=== PATIENT | male | born 1945 | race Two or more races ===

== ENCOUNTER 2019-02-04 09:06 | Inpatient (IN) | payer MEDICARE, MEDICAID ==
[~2019-02-04] VITALS: Ht 162.6 cm; Wt 62.9 kg
[2019-02-04] MEDS ORDERED: SODIUM CHLORIDE 0.9% 1,000 ML IV ONE ×2 (09:35→12:20)
[2019-02-04 10:00] LABS: Basophils # (auto) 0.1 uL; Basophils % (auto) 0.6 % (0.0-2.0); Eosinophils # (auto) 0.2 uL; Eosinophils % (auto) 1.8 % (0.0-7.0); Hematocrit 28.2 % (41.0-53.0); Hemoglobin 9.6 g/dL (13.5-17.5); Lymphocytes # (auto) 0.6 uL; Lymphocytes % (auto) 5.6 % (10.0-50.0); Mean Corpuscular Hemoglobin 29.6 pg (28.0-32.0); Mean Corpuscular Hgb Conc. 33.9 g/dL (32.0-36.0); Mean Corpuscular Volume 87.1 fL (80.0-100.0); Monocytes # (auto) 0.7 uL; Monocytes % (auto) 5.9 % (0.0-12.0); Neutrophils # (auto) 9.7 uL; Neutrophils % (auto) 86.1 % (37.0-80.0); Platelet Count (auto) 230 10^3/uL (140-450); Red Blood Cells 3.23 10^6/uL (4.5-5.90); White Blood Cell 11.2 10^3/uL (4.4-10.8)
[2019-02-04 10:23] LABS: Albumin 3.2 g/dL (3.4-5.0); BUN/Creatinine Ratio 15.7; Calcium 7.7 mg/dL (8.5-10.1)
[2019-02-04 10:27] LABS: Bilirubin, Total 0.6 mg/dL (0.2-1.0); Total Protein 6.8 g/dL (6.4-8.2)
[2019-02-04 11:05] LABS: Urine Bacteria NONE SEEN /hpf (None Seen); Urine Blood Negative /uL (Negative); Urine Hyaline Cast FEW /lpf (0 - 2); Urine Mucus FEW (None Seen); Urine Specific Gravity 1.009 (1.001-1.035); Urine WBC 2 /hpf (0 - 3)
[2019-02-04] MEDS ORDERED: FUROSEMIDE 40 MG/4 ML VIAL IV ONE (12:20)
[2019-02-04] MEDS ORDERED: NITROGLYCERIN 0.4 MG SL TAB SL PRN (15:00)
[2019-02-04] MEDS ORDERED: POTASSIUM CHLORIDE 20 MEQ, LIDOCAINE 1% (LOCAL ANESTH.) 2 ML in SODIUM CHL 0.9% 100 ML IV ONE (15:00)
[2019-02-04] MEDS ORDERED: ONDANSETRON HCL 4 MG/2 ML VIAL IV PRN (15:00)
[2019-02-04] MEDS ORDERED: MORPHINE SULF INJ 2 MG/ML SYRINGE 1ML IV PRN (15:00)
[2019-02-04] MEDS ORDERED: NITROGLYCERIN 0.4MG/HR TOPICAL PATCH TD ONE (15:00)
[2019-02-04] MEDS ORDERED: ENOXAPARIN SOD 60 MG/0.6 ML SYRINGE SC ONE (15:45)
[2019-02-04] MEDS ORDERED: ASPirin 81 mg TAB PO ONE (15:45)
[2019-02-04] MEDS: cefTRIAXone 1GM/50ML D5W 50 ML IV SCH (15:49)
[2019-02-04] MEDS: hydrALAZINE HCL 20 MG/ML VL IV PRN (16:13)
--- NOTE | 2019-02-04 16:17 | NUR ---
SWALLOW EVALUATED IN EMERGENCY DEPARTMENT. PATIENT NONVERBAL AND MOANING. PATIENT HAS NO TEETH OR DENTURE. PATIENT ABLE TO TOLERATE PUREE DIET TEXTURE WITH THIN LIQUIDS WITH NO OVERT SIGNS OR SYMPTOMS OF ASPIRATION. NURSING NOTIFIED.
[2019-02-04] MEDS: NITROGLYCERIN 50MG/250ML 250 ML IV SCH (17:18)
[2019-02-04 17:25] LABS: INR 0.94 (0.9-1.15); Partial Thromboplastin Time 28.9 sec (23.64-32.05)
[2019-02-04] MEDS ORDERED: MORPHINE SULF INJ 2 MG/ML SYRINGE 1ML IV ONE (17:45)
[2019-02-04] MEDS: InsuLIN REG 1unit/0.01ml Soln (100units/ml) SC SCH (18:30)
[2019-02-04] MEDS: ACCU-CHEK COMFORT CURVE STRIP VI SCH (18:30)
[2019-02-04] MEDS: AZITHROMYCIN 500MG/ 250ML 250 ML IV SCH (19:49)
[2019-02-04] MEDS: HYDROcodone-ACET 5/325MG TAB PO PRN (20:49)
[2019-02-05] MEDS: ACCU-CHEK COMFORT CURVE STRIP VI SCH ×4 (00:39→18:57)
[2019-02-05] MEDS: InsuLIN REG 1unit/0.01ml Soln (100units/ml) SC SCH ×4 (00:39→18:00)
[2019-02-05] MEDS: MORPHINE SULF INJ 2 MG/ML SYRINGE 1ML IV PRN (00:52)
[2019-02-05] MEDS: ATORVASTATIN 20 MG TAB PO SCH ×2 (00:55→22:26)
[2019-02-05] MEDS: hydrALAZINE HCL 20 MG/ML VL IV PRN (05:01)
[2019-02-05 05:27] LABS: Basophils # (auto) 0.1 uL; Basophils % (auto) 1.4 % (0.0-2.0); Eosinophils # (auto) 0.3 uL; Eosinophils % (auto) 3.7 % (0.0-7.0); Hematocrit 24.4 % (41.0-53.0); Hemoglobin 8.5 g/dL (13.5-17.5); Lymphocytes # (auto) 1.1 uL; Lymphocytes % (auto) 13.8 % (10.0-50.0); Mean Corpuscular Hemoglobin 30.4 pg (28.0-32.0); Mean Corpuscular Hgb Conc. 34.9 g/dL (32.0-36.0); Mean Corpuscular Volume 87.3 fL (80.0-100.0); Monocytes # (auto) 1.3 uL; Monocytes % (auto) 16.4 % (0.0-12.0); Neutrophils # (auto) 5.2 uL; Neutrophils % (auto) 64.7 % (37.0-80.0); Platelet Count (auto) 217 10^3/uL (140-450); White Blood Cell 8.1 10^3/uL (4.4-10.8)
[2019-02-05 05:45] LABS: INR 1.01 (0.9-1.15)
[2019-02-05 05:56] LABS: BUN/Creatinine Ratio 14.8; Calcium 7.7 mg/dL (8.5-10.1); Potassium 3.3 mmol/L (3.5-5.1)
[2019-02-05] MEDS: cefTRIAXone 1GM/50ML D5W 50 ML IV SCH (09:17)
[2019-02-05] MEDS: ASPirin-EC 81 mg tab PO SCH (10:00)
[2019-02-05] MEDS ORDERED: FUROSEMIDE 40 MG/4 ML VIAL IV SCH (10:00)
[2019-02-05] MEDS ORDERED: LISINOPRIL 10 MG TAB PO SCH (10:00)
[2019-02-05] MEDS ORDERED: ENOXAPARIN SOD 60 MG/0.6 ML SYRINGE SC SCH (10:00)
[2019-02-05] MEDS: NITROGLYCERIN 0.4MG/HR TOPICAL PATCH TD SCH (10:45)
[2019-02-05] MEDS: POTASSIUM CHL 20MEQ/100ML 100 ML IV SCH ×2 (11:48→13:50)
[2019-02-05] MEDS: NITROGLYCERIN 50MG/250ML 250 ML IV SCH (13:50)
[2019-02-05] MEDS: HYDROcodone-ACET 5/325MG TAB PO PRN (14:30)
[2019-02-05] MEDS ORDERED: NICARDIPINE 25MG/250ML BAG KIT 250 ML IV ONE (16:13)
[2019-02-05] MEDS: NICARDIPINE 25MG/250ML BAG KIT 250 ML IV SCH ×2 (16:25→21:19)
[2019-02-05] MEDS: AZITHROMYCIN 500MG/ 250ML 250 ML IV SCH (18:57)
[2019-02-05 20:15] LABS: Calcium 7.3 mg/dL (8.5-10.1); Potassium 4.1 mmol/L (3.5-5.1)
[2019-02-05 20:17] LABS: BUN/Creatinine Ratio 13.9
[2019-02-05] MEDS ORDERED: FUROSEMIDE 40 MG/4 ML VIAL IV ONE (21:15)
[2019-02-05] MEDS: ALBUTEROL SULF 2.5 MG/0.5ML(0.5%) NEB SOLN NEB PRN (22:18)
[2019-02-05 23:59] VITALS: BP 151/60
[2019-02-06] VITALS (24 sets, daily range): BP systolic 79–158; BP diastolic 45–61
[2019-02-06] MEDS: InsuLIN REG 1unit/0.01ml Soln (100units/ml) SC SCH ×5 (00:46→23:54)
[2019-02-06] MEDS: ACCU-CHEK COMFORT CURVE STRIP VI SCH ×5 (00:46→23:54)
[2019-02-06] MEDS: NICARDIPINE 25MG/250ML BAG KIT 250 ML IV SCH ×3 (02:20→09:49)
[2019-02-06] MEDS: hydrALAZINE HCL 20 MG/ML VL IV PRN (02:29)
[2019-02-06] MEDS ORDERED: FUROSEMIDE 40 MG/4 ML VIAL IV ONE (03:00)
[2019-02-06] MEDS ORDERED: NICARDIPINE 25MG/250ML BAG KIT 250 ML IV ONE (03:19)
[2019-02-06] MEDS: ALBUTEROL SULF 2.5 MG/0.5ML(0.5%) NEB SOLN NEB PRN ×2 (03:39→06:48)
[2019-02-06] MEDS: MORPHINE SULF INJ 2 MG/ML SYRINGE 1ML IV PRN (04:44)
[2019-02-06 06:13] LABS: Eosinophils # (auto) 0 uL; Lymphocytes # (auto) 0.8 uL; Mean Corpuscular Hgb Conc. 35.1 g/dL (32.0-36.0); Monocytes # (auto) 0.9 uL; Neutrophils # (auto) 8.5 uL; White Blood Cell 10.3 10^3/uL (4.4-10.8)
[2019-02-06 06:16] LABS: Basophils # (auto) 0.1 uL; Basophils % (auto) 0.5 % (0.0-2.0); Hematocrit 22.9 % (41.0-53.0); Lymphocytes % (auto) 7.3 % (10.0-50.0); Mean Corpuscular Hemoglobin 30.5 pg (28.0-32.0); Mean Corpuscular Volume 86.9 fL (80.0-100.0); Monocytes % (auto) 9.2 % (0.0-12.0); Platelet Count (auto) 239 10^3/uL (140-450); Red Blood Cells 2.64 10^6/uL (4.5-5.90); Red Cell Distribution Width 14.8 % (11.8-14.3)
[2019-02-06 06:33] LABS: Albumin 2.9 g/dL (3.4-5.0); Calcium 7.4 mg/dL (8.5-10.1); Magnesium 2.7 mg/dL (1.6-2.6); Potassium 3.8 mmol/L (3.5-5.1)
[2019-02-06 06:37] LABS: BUN/Creatinine Ratio 14.3; Bilirubin, Total 0.4 mg/dL (0.2-1.0); Total Protein 6.7 g/dL (6.4-8.2)
[2019-02-06] MEDS ORDERED: SODIUM CHLORIDE 0.9% 1,000 ML IV SCH (08:45)
[2019-02-06] MEDS: ASPirin-EC 81 mg tab PO SCH (08:49)
[2019-02-06] MEDS: ENOXAPARIN SOD 60 MG/0.6 ML SYRINGE SC SCH (08:49)
[2019-02-06] MEDS: NITROGLYCERIN 0.4MG/HR TOPICAL PATCH TD SCH (08:49)
[2019-02-06] MEDS: cefTRIAXone 1GM/50ML D5W 50 ML IV SCH (08:49)
[2019-02-06] MEDS ORDERED: FUROSEMIDE INJECTION 250 MG in SODIUM CHL 0.9% 225 ML IV SCH (09:45)
[2019-02-06] MEDS ORDERED: PIPERACILLIN-TAZOB 2.25GM 50 ML IV ONE (11:30)
[2019-02-06] MEDS ORDERED: CARVEDILOL 3.125 MG TAB PO ONE (12:45)
[2019-02-06] MEDS ORDERED: LINEZOLID 600MG/300ML 300 ML IV ONE (12:45)
[2019-02-06] MEDS ORDERED: FURO1TAB33 PO (12:49)
[2019-02-06] MEDS ORDERED: DOCU-94 PO (12:51)
[2019-02-06] MEDS ORDERED: HYDR50TA15 PO (12:53)
[2019-02-06] MEDS ORDERED: CLON0.1T PO (12:53)
[2019-02-06] MEDS ORDERED: FERR27TA2 PO (12:53)
[2019-02-06] MEDS ORDERED: AML5T PO (12:53)
[2019-02-06] MEDS ORDERED: CAR3125T PO (12:53)
[2019-02-06] MEDS: HYDROcodone-ACET 5/325MG TAB PO PRN (13:23)
[2019-02-06] MEDS ORDERED: ETOMIDATE (2MG/ML) 20ML VIAL IV ONE ×2 (13:33→13:45)
[2019-02-06] MEDS ORDERED: SUCCINYLCHOLINE CHLORIDE 20 MG/ML 10ML VIAL IV ONE ×2 (13:34→13:45)
[2019-02-06] MEDS ORDERED: MIDAZOLAM DRIP 50 mg/50mL 50 ML IV ONE (13:45)
[2019-02-06] MEDS ORDERED: fentaNYL Drip 2500mCg/250mlNS 250 ML IV ONE (13:56)
[2019-02-06] MEDS: fentaNYL Drip 2500mCg/250mlNS 250 ML IV SCH (14:03)
[2019-02-06] MEDS: MIDAZOLAM DRIP 50 mg/50mL 50 ML IV SCH ×3 (14:03→20:33)
[2019-02-06] MEDS: NOREPINEPHRINE 8 MG/250ML KIT 250 ML IV SCH ×2 (14:42→18:34)
[2019-02-06] MEDS ORDERED: LIDOCAINE 1% (LOCAL ANESTH.) PF 5ml SDV ID ONE (15:15)
[2019-02-06] MEDS: PHENYLEPHRINE INJ 20 MG in SODIUM CHL 0.9% 250 ML IV SCH ×3 (16:31→22:14)
[2019-02-06 17:26] LABS: Protein, Urine 316.3 mg/dL (0.0-11.9)
[2019-02-06] MEDS: PIPERACILLIN-TAZOB 2.25GM 50 ML IV SCH (18:20)
[2019-02-06 19:11] LABS: BUN/Creatinine Ratio 14.6
[2019-02-06 19:13] LABS: Calcium 5.9 mg/dL (8.5-10.1)
--- NOTE | 2019-02-06 19:15 | NUR ---
Admit to ICU from ER on vent EDILSON TRAN admitted to ICU via gurney on radiation monitor, intubated and being bagged by Respiratory Therapist. Patient transferred to bed, connected to mechanical ventilator by therapist, SAMMIE at bedside. Patient connected to ICU monitoring, weighed by bedscale, oriented to Renetta Ro, primary RN, unit, ventilator and sedation. NOTE: Patient has TLC PICC line infusing phenylephrine, levophed, lasix drip and sedation with versed and fentanyl. See spreadsheet for titration, OGT and flores catheter in place. Right upper and lower extremities noted to be contracted. MRSA swab in the nares done and specimen sent to lab.
[2019-02-06 19:16] LABS: Potassium 2.8 mmol/L (3.5-5.1)
--- NOTE | 2019-02-06 19:42 | NUR ---
RECEIVED A CALL FROM DR. SCIHLLING WITH NEW ORDERS TO HOLD LASIX DRIP, GIVE NS 500ML IV BOLUS AND START 3% NS @ 50 ML/HR, WILL CARRY OUT ORDERS AFTER BEING READ BACK AND VERIFIED.
[2019-02-06] MEDS ORDERED: SODIUM CHL 3% 500 ML IV ONE (19:45)
[2019-02-06] MEDS ORDERED: INSULIN LANTUS (GLARGINE) 1 /0.01ml (100units/ml) SC ONE (19:45)
[2019-02-06] MEDS ORDERED: SODIUM CHLORIDE 0.9% 500 ML IV ONE (20:30)
[2019-02-06] MEDS: POTASSIUM CHL 20MEQ/100ML 100 ML IV SCH ×2 (20:49→22:40)
[2019-02-06] MEDS: CARVEDILOL 3.125 MG TAB PO SCH (20:53)
[2019-02-06] MEDS: LINEZOLID 600MG/300ML 300 ML IV SCH (21:22)
[2019-02-06] MEDS: SODIUM CHLOR 0.9% PF (SALINE LOCK) 10ML VIAL/SYR IV SCH (21:23)
[2019-02-06] MEDS: ATORVASTATIN 20 MG TAB PO SCH (21:34)
--- NOTE | 2019-02-06 23:33 | NUR ---
RECEIVED A CALL FROM DR. SCHILLING, UPDATED ON PT'S STATUS, NO NEW ORDERS GIVEN BUT JUST TO FOLLOW UP LABS IN THE MORNING.
[2019-02-06 23:55] LABS: BUN/Creatinine Ratio 14.4; Potassium 3.4 mmol/L (3.5-5.1)
[2019-02-06] MEDS: PHENYLEPHRINE INJ 80 MG in SODIUM CHL 0.9% 250 ML IV SCH (23:58)
[2019-02-07] VITALS (94 sets, daily range): BP systolic 91–119; BP diastolic 54–76
--- NOTE | 2019-02-07 00:24 | NUR ---
MAINTAINED ON SUPINE POSITION DUE TO UNSTABLE VS, MAX OUT ON PRESSORS, LEVOPHED @ 30 MCG/MIN, KIMANI @ 180 MCG/MIN, BP 100/58, HR 76. WILL CONTINUE TO MONITOR.
--- NOTE | 2019-02-07 00:25 | NUR ---
RT AT BEDSIDE, FIO2 TITRATED TO 50%, SAT 96%.
--- NOTE | 2019-02-07 00:45 | NUR ---
URINE SPECIMEN SENT FOR IMMUNOFIXATION
[2019-02-07] MEDS: NOREPINEPHRINE BITARTRATE 32 MG in D5W 5% 218 ML IV SCH ×2 (01:08→19:56)
[2019-02-07] MEDS: PIPERACILLIN-TAZOB 2.25GM 50 ML IV SCH ×3 (01:34→17:57)
--- NOTE | 2019-02-07 02:00 | NUR ---
RT AT BEDSIDE, TITRATED FIO2 40%, SAT 94%
[2019-02-07] MEDS ORDERED: PHENYLEPHRINE IV 250 ML IV ONE (03:13)
[2019-02-07] MEDS ORDERED: PHENYLEPHRINE HCL 10 MG/ML VL ONE (03:13)
[2019-02-07] MEDS: MIDAZOLAM DRIP 50 mg/50mL 50 ML IV SCH (03:55)
[2019-02-07 04:28] LABS: Basophils # (auto) 0.1 uL; Basophils % (auto) 0.8 % (0.0-2.0); Eosinophils # (auto) 0 uL; Eosinophils % (auto) 0.5 % (0.0-7.0); Hematocrit 25.9 % (41.0-53.0); Lymphocytes # (auto) 1.9 uL; Lymphocytes % (auto) 18.1 % (10.0-50.0); Mean Corpuscular Hemoglobin 30.4 pg (28.0-32.0); Mean Corpuscular Hgb Conc. 34.7 g/dL (32.0-36.0); Mean Corpuscular Volume 87.6 fL (80.0-100.0); Monocytes # (auto) 1.8 uL; Monocytes % (auto) 17.8 % (0.0-12.0); Neutrophils # (auto) 6.5 uL; Neutrophils % (auto) 62.8 % (37.0-80.0); Nucleated Red Blood Cells % 0.1 %; Platelet Count (auto) 294 10^3/uL (140-450); Red Blood Cells 2.95 10^6/uL (4.5-5.90); Red Cell Distribution Width 14.7 % (11.8-14.3); White Blood Cell 10.4 10^3/uL (4.4-10.8)
[2019-02-07 04:52] LABS: Albumin 2.9 g/dL (3.4-5.0); Bilirubin, Total 0.3 mg/dL (0.2-1.0); Calcium 7.2 mg/dL (8.5-10.1); Potassium 3.6 mmol/L (3.5-5.1)
[2019-02-07] MEDS: PHENYLEPHRINE INJ 80 MG in SODIUM CHL 0.9% 250 ML IV SCH (05:10)
[2019-02-07] MEDS: ACCU-CHEK COMFORT CURVE STRIP VI SCH ×3 (06:00→17:18)
[2019-02-07] MEDS: InsuLIN REG 1unit/0.01ml Soln (100units/ml) SC SCH ×3 (06:00→17:19)
--- NOTE | 2019-02-07 06:17 | NUR ---
ACCVILMA, 0527 = 40 0528 = 45, D50-50 CC IV BOLUS GIVEN, 0615 = 144
--- NOTE | 2019-02-07 07:22 | NUR ---
CLOSING NOTES LEFT ON BED, STILL ON VENT WITH FIO2 40%, SEDATION WITH VERSED AND FENTANYL, LEVOPHED AND PHENYLEPHRINE DRIPS, SEE SPREADSHEET FOR FLOW RATES. LATEST BP 99/58, HR 82, T 97, SPO2 94%. REPORT GIVEN TO STEVIE LUCIA TO ASSUME CARE
[2019-02-07] MEDS: CARVEDILOL 3.125 MG TAB PO SCH (09:50)
[2019-02-07] MEDS: SODIUM CHLOR 0.9% PF (SALINE LOCK) 10ML VIAL/SYR IV SCH ×2 (09:50→22:16)
[2019-02-07] MEDS: LINEZOLID 600MG/300ML 300 ML IV SCH ×2 (09:50→22:17)
[2019-02-07] MEDS: ASPirin-EC 81 mg tab PO SCH (09:50)
[2019-02-07] MEDS: NITROGLYCERIN 0.4MG/HR TOPICAL PATCH TD SCH (09:51)
[2019-02-07] MEDS: ENOXAPARIN SOD 60 MG/0.6 ML SYRINGE SC SCH (09:51)
[2019-02-07] MEDS: fentaNYL Drip 2500mCg/250mlNS 250 ML IV SCH (12:25)
--- NOTE | 2019-02-07 12:30 | NUR ---
WOUND CARE NOTE: Wound care team placing patient on skin integrity rounding due to intubation and sedation. Patient is a 73 yo male admitted for NSTEMI. 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 Patient is currently intubated and sedated. Patient with no signs or symptoms of pain. Last Domingo score is 10. Patient with no pressure injuries. RECOMMENDATIONS: Dietary Consult; Turn q2hrs; Nursing to cleanse buttocks/brian area with mild soap and water, pat dry, apply ZGUARD BID/PRN soiling, may apply sacral OPTIFOAM GENTLE to prevent friction/shear; wound care team to follow while intubated and Domingo <18.
[2019-02-07] MEDS ORDERED: Nepro With Carb Steady 1 Liter Bottle GT SCH (13:15)
[2019-02-07] MEDS: PANTOPRAZOLE 40 MG/10 ML VIAL INJ IV SCH (13:21)
[2019-02-07] MEDS: DEXTROSE (50%) 50ML SYRG IV PRN (17:08)
[2019-02-07] MEDS: ATORVASTATIN 20 MG TAB PO SCH (22:17)
[2019-02-08] VITALS (105 sets, daily range): BP systolic 105–138; BP diastolic 61–89
--- NOTE | 2019-02-08 01:51 | NUR ---
RT NOTE ABG RAN AT 0112 ON 02/08/[address] VERAS IS AWARE AND ACCEPTED SAMPLE. DR. VERAS WANTED ABG FOR PH AND PCO2 VALUES.
[2019-02-08] MEDS: PIPERACILLIN-TAZOB 2.25GM 50 ML IV SCH ×3 (02:00→18:05)
[2019-02-08 02:53] LABS: Basophils # (auto) 0.1 uL; Basophils % (auto) 1.6 % (0.0-2.0); Eosinophils # (auto) 0.1 uL; Eosinophils % (auto) 0.9 % (0.0-7.0); Hematocrit 25.2 % (41.0-53.0); Hemoglobin 8.8 g/dL (13.5-17.5); Lymphocytes # (auto) 1.2 uL; Lymphocytes % (auto) 15.5 % (10.0-50.0); Mean Corpuscular Hemoglobin 30.2 pg (28.0-32.0); Mean Corpuscular Volume 86.1 fL (80.0-100.0); Monocytes % (auto) 12.9 % (0.0-12.0); Neutrophils # (auto) 5.4 uL; Neutrophils % (auto) 69.1 % (37.0-80.0); Nucleated Red Blood Cells % 0.3 %; Platelet Count (auto) 256 10^3/uL (140-450); Red Blood Cells 2.93 10^6/uL (4.5-5.90); Red Cell Distribution Width 15.1 % (11.8-14.3); White Blood Cell 7.8 10^3/uL (4.4-10.8)
[2019-02-08 03:15] LABS: BUN/Creatinine Ratio 13.6; Calcium 7.6 mg/dL (8.5-10.1)
[2019-02-08 03:21] LABS: Potassium 2.8 mmol/L (3.5-5.1)
[2019-02-08] MEDS: InsuLIN REG 1unit/0.01ml Soln (100units/ml) SC SCH ×5 (06:00→23:23)
[2019-02-08] MEDS: ACCU-CHEK COMFORT CURVE STRIP VI SCH ×5 (06:07→23:21)
[2019-02-08] MEDS ORDERED: POTASSIUM CHL 20MEQ/100ML 100 ML IV ONE ×3 (06:24→18:45)
[2019-02-08] MEDS: POTASSIUM CHL 20MEQ/100ML 100 ML IV SCH ×2 (07:00→08:52)
[2019-02-08 08:07] LABS: Immunoglobulin G, Serum 1165 mg/dL (700-1600)
[2019-02-08] MEDS: ASPirin-EC 81 mg tab PO SCH ×2 (10:00→10:14)
--- NOTE | 2019-02-08 10:05 | NUR ---
ULTRASOUND AT BEDSIDE; US tech at bedside for venous study of left arm.
[2019-02-08] MEDS: SODIUM CHLOR 0.9% PF (SALINE LOCK) 10ML VIAL/SYR IV SCH ×2 (10:14→21:29)
[2019-02-08] MEDS: PANTOPRAZOLE 40 MG/10 ML VIAL INJ IV SCH (10:14)
--- NOTE | 2019-02-08 11:14 | NUR ---
ULTRASOUND RESULTS: US results reported to Dr. Rosado, no further orders at this time due to chronic nature of occlusion.
--- NOTE | 2019-02-08 12:10 | NUR ---
Nutrition Assessment Notes: please see attached link for complete assessment Est. Needs based on BW (56 kg): 8768-5517 kcal (25-30 kcal/kgBW), 56-61 gms pro (1.0-1.1 gms/kgBW). Will continue to monitor pertinent labs and reassess nutrient need prn Addendum: 02/08/19 at [address] Amended: Links added.
[2019-02-08] MEDS: LINEZOLID 600MG/300ML 300 ML IV SCH ×2 (13:32→21:29)
[2019-02-08] MEDS: MIDAZOLAM DRIP 50 mg/50mL 50 ML IV SCH (13:37)
[2019-02-08] MEDS: DEXTROSE (50%) 50ML SYRG IV PRN (13:57)
--- NOTE | 2019-02-08 15:30 | NUR ---
AT BEDSIDE; Dr. Ochoa at bedside. Updated on patient's condition, plan to wean off of sedation and attempt ventilator weaning for tomorrow.
[2019-02-08 18:19] LABS: BUN/Creatinine Ratio 15.3; Calcium 7.3 mg/dL (8.5-10.1); Potassium 3.1 mmol/L (3.5-5.1)
[2019-02-08] MEDS: fentaNYL Drip 2500mCg/250mlNS 250 ML IV SCH (18:50)
--- NOTE | 2019-02-08 19:30 | NUR ---
Initial Assessment Patient received laying on bed on mechanical ventilation and sedated with Fentanyl. HOB elevated greater than 30 degrees. ETT secured with [place], ventilator plugged into red outlet, Ambu bag at bedside, oral care and suction rendered. OGT running Nephro with carb steady tube feeding. RN checked residual and it is over 200ml. Tube feedings placed on hold for aspiration precautions/protocol. RN verified proper placement via auscultation with air bolus. MERRY PICC line intact and patent x3 ports with no s/s of infiltration or phlebitis noted. Abd soft and non-distended. F/C intact and draining yellow urine to gravity. Optifoam gentle adhesive dressing CDI to sacral area. SCD's intact to BLE. Neurovascular status intact with palpable distal pulses x4 extremities, skin warm to touch, and capillary refill brisk. Right arm is contracted in flexion, bilateral lower extremities appear contracted as well flexed at hips and bent at the knees. Pillow placed in between legs to prevent pressure areas from forming. Wash cloth in right hand (clenched fist) to prevent pressure area as well. Bed in lowest position, side rails up, bed brakes set, all alarms audible, in direct view of nurses station. Continue close monitoring.
[2019-02-08] MEDS: NOREPINEPHRINE BITARTRATE 32 MG in D5W 5% 218 ML IV SCH (19:56)
[2019-02-08] MEDS: ATORVASTATIN 20 MG TAB PO SCH (21:29)
[2019-02-08] MEDS: PHENYLEPHRINE INJ 80 MG in SODIUM CHL 0.9% 250 ML IV SCH (22:10)
--- NOTE | 2019-02-08 23:00 | NUR ---
Wound care pressure area to right ischial bony prominence and right lateral ankle covered with Optifoam gentle adhesive dressing. Photos taken for reference and new wound care consult placed per protocol.
[2019-02-09] VITALS (101 sets, daily range): BP systolic 95–145; BP diastolic 67–97
[2019-02-09] MEDS: PIPERACILLIN-TAZOB 2.25GM 50 ML IV SCH ×3 (01:28→17:22)
--- NOTE | 2019-02-09 04:00 | NUR ---
Ongoing Assessment patient was awake but not following commands. Became tachycardic-Fentanyl was titrated up for patient safety/comfort. Tube feeding residuals re-checked at 0000 and it is 150. Tube feedings remain off for pending CPAP trial. HOB elevated, being turned, all bony prominences and heels offloaded with pillows, skin is clean and dry. Skin re-assessed for any changes and none noted. Neurovascular status remains intact with palpable distal pulses, skin warm to touch, and capillary refill brisk. PICC line intact and patent with no s/s of infiltration or phlebitis noted. All fall/safety precautions intact. Continue close monitoring.
[2019-02-09 04:27] LABS: BUN/Creatinine Ratio 15.1; Calcium 7.8 mg/dL (8.5-10.1); Potassium 3.2 mmol/L (3.5-5.1)
--- NOTE | 2019-02-09 04:58 | NUR ---
Hospitalist paged re: labs. Waiting for call back.
--- NOTE | 2019-02-09 05:03 | NUR ---
Hospitalist called back Informed of labs. Order received for Potassium effervescent 25meq GT x1. RN performe TORB and COFFEE MAKER SERVICER verified order to be correct. No additional orders received.
[2019-02-09] MEDS ORDERED: POTASSIUM EFFERVESENT TAB 25 MEQ GT ONE ×2 (05:15→12:15)
[2019-02-09] MEDS: ACCU-CHEK COMFORT CURVE STRIP VI SCH ×4 (05:24→23:06)
[2019-02-09] MEDS: InsuLIN REG 1unit/0.01ml Soln (100units/ml) SC SCH ×4 (05:24→23:16)
--- NOTE | 2019-02-09 07:00 | NUR ---
Report given No changes or incidents to report. No s/s of distress or pain noted, all vitals stable Care endorsed to day shift RN.
[2019-02-09] MEDS: SODIUM CHLOR 0.9% PF (SALINE LOCK) 10ML VIAL/SYR IV SCH ×2 (10:00→21:34)
[2019-02-09] MEDS: PANTOPRAZOLE 40 MG/10 ML VIAL INJ IV SCH (10:38)
[2019-02-09] MEDS: LINEZOLID 600MG/300ML 300 ML IV SCH ×2 (10:39→21:34)
--- NOTE | 2019-02-09 11:41 | NUR ---
DR. VERAS HERE TO SEE PATIENT. SEE MD NOTES AND EMR FOR ANY NEW ORDERS.
--- NOTE | 2019-02-09 12:07 | NUR ---
DR. CHEN HERE TO SEE PATIENT. SEE MD OTES AND EMR FOR ANY NEW ORDERS.
[2019-02-09] MEDS ORDERED: FUROSEMIDE 40 MG/4 ML VIAL IV ONE (12:30)
--- NOTE | 2019-02-09 12:30 | NUR ---
DR. SCHILLING HERE TO SEE PATIENT. SEE MD NOTES AND EMR FOR ANY NEW ORDERS.
--- NOTE | 2019-02-09 12:37 | NUR ---
DR. CHEN HERE TO SEE PATIENT. SEE MD NOTES AND EMR FOR ANY NEW ORDERS.
--- NOTE | 2019-02-09 12:42 | NUR ---
Wound care consult here to see patient. See notes.
--- NOTE | 2019-02-09 12:44 | NUR ---
WOUND CARE NOTE: IN TO SEE PATIENT AT THIS TIME FOR SKIN INTEGRITY. PATIENT HAS CURRENT CLEMENT SCORE OF 10. PATIENT IS INTUBATED, SEDATED. HE CONTINUES TO DISPLAY MULTIPLE PINK COLLAGEN SCARS TO SACRUM, BILATERAL ISHIUM. THERE IS A SLOW TO CHARLEY REDNESS NOTED TO RIGHT HIP/BUTTOCK. SKIN IS DARK RED, PINK, BLANCHES. WOUND PHOTO TAKEN UPON ASSESSMENT BY BEDSIDE NURSE FOR REFERENCE. PATIENT IS NOTED TO HAVE CONTRACTIONS OF THE LIMBS, VERY THIN- WEIGHING ONLY 57 KG. ORDERED SPECIALTY AIR BED AT THIS TIME. PATIENT TO BE PLACED, PENDING DELIVERY BY VETO RAMIREZ. RECOMMEND: ADD: SPECIALTY AIR BED, CONTINUATION WITH ALL OTHER WOUND CARE ORDERS PREVIOUSLY PRESCRIBED BY MD. WOUND CARE TEAM WILL CONTINUE TO MONITOR. Addendum: 02/09/19 at 1609 by Adeline Prince RN Amended: Links added.
--- NOTE | 2019-02-09 13:10 | NUR ---
DR. BIRCH HERE TO SEE PATIENT. SEE MD NOTES AND EMR FOR ANY NEW ORDERS.
[2019-02-09] MEDS: MIDAZOLAM DRIP 50 mg/50mL 50 ML IV SCH (13:13)
[2019-02-09] MEDS: fentaNYL Drip 2500mCg/250mlNS 250 ML IV SCH (13:13)
--- NOTE | 2019-02-09 15:00 | NUR ---
Respiratory note: MEDNEB TX GIVEN WITH EZ-PAP. PT TOLERATED WELL. NO ADVERSE REACTIONS NOTED. EZPAP SET TO 5 WITH FLOW SET TO 8LPM Addendum: 02/09/19 at 1635 by Montana Pineda, RT WRONG PT PLEASE DISREGARD.
--- NOTE | 2019-02-09 19:00 | NUR ---
OPENING NOTES ASSUMED CARE, STILL ON VENT WITH NO SEDATION, OCCASIONALLY OPENING HIS EYES BUT DOES NOT FOLLOW SIMPLE COMMANDS, RIGHT UPPER/LOWER EXTREMITIES ARE CONTRACTED, LEFT ARM PICC LINE PATENT AND INTACT, PIMENTEL CATHETER DRAINING TO A CLEAR, YELLOW URINE. BED IN LOWEST POSITION WITH SIDE RAILS UP, BED ALARM ON. WILL CONTINUE CARE.
--- NOTE | 2019-02-09 20:55 | NUR ---
TRANSFERRED TO SPECIALTY BED, VS STABLE, NO DISTRESS NOTED.
--- NOTE | 2019-02-09 21:00 | NUR ---
SMALL AMOUNT OF SOFT STOOLS NOTED. COMPLETE BED BATH WITH CHG DONE, FULL LINENS AND GOWN CHANGED, REPOSITIONED FOR COMFORT.
[2019-02-09] MEDS: ATORVASTATIN 20 MG TAB PO SCH (21:35)
--- NOTE | 2019-02-09 21:58 | NUR ---
SCD APPLIED TO RIGHT LEG
[2019-02-10] VITALS (103 sets, daily range): BP systolic 95–139; BP diastolic 55–97
[2019-02-10] MEDS: PIPERACILLIN-TAZOB 2.25GM 50 ML IV SCH ×3 (02:04→18:30)
[2019-02-10 04:07] LABS: Basophils # (auto) 0.1 uL; Basophils % (auto) 0.8 % (0.0-2.0); Eosinophils # (auto) 0 uL; Eosinophils % (auto) 0.1 % (0.0-7.0); Hematocrit 25.1 % (41.0-53.0); Hemoglobin 8.7 g/dL (13.5-17.5); Lymphocytes # (auto) 0.9 uL; Lymphocytes % (auto) 12.7 % (10.0-50.0); Mean Corpuscular Hgb Conc. 34.6 g/dL (32.0-36.0); Mean Corpuscular Volume 86.9 fL (80.0-100.0); Monocytes # (auto) 0.9 uL; Monocytes % (auto) 12.9 % (0.0-12.0); Neutrophils # (auto) 5.4 uL; Neutrophils % (auto) 73.5 % (37.0-80.0); Nucleated Red Blood Cells % 0.8 %; Platelet Count (auto) 268 10^3/uL (140-450); Red Blood Cells 2.89 10^6/uL (4.5-5.90); Red Cell Distribution Width 14.8 % (11.8-14.3); White Blood Cell 7.3 10^3/uL (4.4-10.8)
[2019-02-10 04:27] LABS: BUN/Creatinine Ratio 15.9; Potassium 4.2 mmol/L (3.5-5.1)
--- NOTE | 2019-02-10 04:30 | NUR ---
ELIMINATION MODERATE AMOUNT OF SOFT, GREENISH STOOLS NOTED, CLEANSED AND KEPT DRY AND COMFORTABLE, Z-GUARD APPLIED TO SACRUM AND COVERED WITH OPTIFOAM. REPOSITIONED FOR COMFORT.
[2019-02-10] MEDS: InsuLIN REG 1unit/0.01ml Soln (100units/ml) SC SCH ×3 (06:00→18:00)
--- NOTE | 2019-02-10 06:00 | NUR ---
UNABLE TO WEIGH, BEDSCALE IS NOT WORKING
[2019-02-10] MEDS: ACCU-CHEK COMFORT CURVE STRIP VI SCH ×3 (06:07→18:29)
--- NOTE | 2019-02-10 06:50 | NUR ---
PAGED THE HOSPITALIST FOR LOW URINE OUTPUT. AWAITING CALL BACK.
--- NOTE | 2019-02-10 07:09 | NUR ---
Respiratory note: RECEIVED PATIENT ON V14 ESPRIT VENT ORALLY INTUBATED WITH AN 8.0 ETT SECURED VIA JABARI AT THE 22CM MARKING AT THE LIP, AND MECHANICALLY VENTILATED WITH THE CHARTED SETTINGS. SPO2 97%, LUNG SOUNDS CLEAR/DIM T/O, NO SECRETIONS WHEN SUCTIONED. SKIN IS WARM/DRY TO THE TOUCH AND IS INTACT NEAR JABARI SITE. THERE IS AN OGT IN PLACE AND SECURED TO THE ETT, A PICC LINE IS PLACED IN THE LEFT UPPER ARM. EDEMA NOTED IN LEFT HAND. NO EDEMA NOTED IN OTHER EXTREMITIES. NO NEW CXR TO ASSESS. PATIENT UNRESPONSIVE TO VERBAL STIMULI BUT DOES SHOW RESPONSE TO TACTILE STIMULI AND IS OFF ALL SEDATION. PATIENT IS RESTING COMFORTABLY AND TOLERATING VENT WELL, NO CHANGES MADE.
--- NOTE | 2019-02-10 07:13 | NUR ---
BHARTI DODGE CALLED BACK, UPDATED ON PT'S URINE OUTPUT OF 120 ML, HE SAID, HE WILL REVIEW THE LABS FIRST. NO NEW ORDER WAS GIVEN
[2019-02-10] MEDS ORDERED: FUROSEMIDE 20 MG/2 ML VIAL IV ONE (07:15)
--- NOTE | 2019-02-10 07:27 | NUR ---
LASIX 20 MG IV GIVEN ORDERED, BP 115/81
[2019-02-10] MEDS: ASPirin-EC 81 mg tab PO SCH (10:00)
[2019-02-10] MEDS: PANTOPRAZOLE 40 MG/10 ML VIAL INJ IV SCH (10:15)
[2019-02-10] MEDS: SODIUM CHLOR 0.9% PF (SALINE LOCK) 10ML VIAL/SYR IV SCH ×2 (10:15→22:35)
--- NOTE | 2019-02-10 11:00 | NUR ---
AT BEDSIDE: Dr. Nolasco at bedside, updated on decreased urine output during warehouse worker 2nd shift. Orders received.
--- NOTE | 2019-02-10 11:13 | NUR ---
Nutrition Follow-up Notes Wt.: 57.0 kg as of yesterday. Pt's intubated, non-sedated, no immediate family member at bedside during rounds earlier. Pt's currently NPO, EN support temporarily held for possible weaning off from vent, per nursing. Pt's with previous order for Nephro Carb Steady @ 30 ml/hr providing 1296 kcal, 58 gms pro and 523 ml free water. Noted pt's for active Wound and Pulmonary consults. Est. Needs based on BW (56 kg): 1260-1444 kcal (25-30 kcal/kgBW), 56-61 gms pro (1.0-1.1 gms/kgBW). Will continue to monitor pertinent labs and reassess nutrient need prn Labs: Na 133 L, BUN 63 H, Cr 3.96 H, Ca 8.0 L, Alb 2.7 L. Skin: Domingo scale 12, high risk, pt's right hip/buttocks blanchable redness per clinical documentation consultant. Pls refer to latest job coach/job developer's notes for further details re: tx plans. GI: Pt had 1 BM this morning per clinical documentation consultant. PES: Increased nutrient needs r/t current/chronic medical/nutritional status aeb 96% IBW, BMI 21.6 kg/m2, decreased muscle mass, intubated sedated with order of NPO Altered nutrition related lab values r/t current/chronic medical condition aeb elev RFT hypocalcemia Will continue to monitor NPO status, skin status, pertinent labs and weight trend. F/u in 2 to 3 days. Rec.: 1.) If still NPO remains on EN support, with renal labs continue trending up, not on dialysis, consider change EN formula to Glucerna 1.2 Luis Angel @ 50 ml/hr if medically appropriate. 2.) If Albumin continues trending down improved renal labs, consider Prostat 1 pkt BID. 3.) Consider daily MVI with minerals and Asc acid 500 mgs BID. 4.) Advance gradually to oral diet when medically appropriate. 5.) Refer pt to CDE/RD for further nutrition education and weight monitoring upon discharge. 6.) Continue current plan of care.
[2019-02-10] MEDS: fentaNYL Drip 2500mCg/250mlNS 250 ML IV SCH ×2 (12:51→22:38)
[2019-02-10] MEDS: LINEZOLID 600MG/300ML 300 ML IV SCH ×2 (12:51→22:35)
[2019-02-10] MEDS: MIDAZOLAM DRIP 50 mg/50mL 50 ML IV SCH (12:51)
--- NOTE | 2019-02-10 12:55 | NUR ---
AT BEDSIDE: Dr. Ochoa at bedside, orders received for CPAP trial will notify RT.
--- NOTE | 2019-02-10 13:07 | NUR ---
Respiratory note: PATIENT PLACED ON CPAP MODE AT THIS TIME FOR SBT. REA FIGUEROA AWARE OF VENT MODE CHANGE AND PATIENTS CURRENT TOLERANCE. PATIENT TOLERATING TRIAL WELL SO FAR. WILL CONTINUE TO MONITOR PATIENT CLOSELY. VT: 461 RR: 24 VE: 7.3 HR: 112 SPO2: 96% BP: 105/74
--- NOTE | 2019-02-10 13:25 | NUR ---
Respiratory note: SBT FAILED. PATIENT PLACED BACK ON PREVIOUSLY ORDERED AC MODE/SETTINGS. PATIENT BECAME INCREASINGLY TACHYPNEIC WITH RR AT 38 AND WAS UNABLE TO RELAX AND DECREASE RATE. REA DC IS COVERING FOR REA FIGUEROA, AND WAS NOTIFIED OF FAILED SBT AND PLACEMENT BACK ON PREVIOUS SETTINGS. SBT LASTED FOR 20MIN.
[2019-02-10] MEDS ORDERED: SODIUM CHLORIDE 0.9% 250 ML IV ONE (16:00)
[2019-02-10] MEDS ORDERED: SODIUM CHLORIDE 0.9% 1,000 ML IV SCH (16:00)
--- NOTE | 2019-02-10 16:26 | NUR ---
Respiratory note: VENT MODE CHANGED TO SIMV, WITH THE FOLLOWING SETTINGS: SIMV 10, 500, +8, PS 10, 30% PER DR. VERAS'S BEDSIDE ORDER. PATIENT TOLERATING NEW MODE WELL. REA FIGUEROA MADE AWARE OF ALL CHANGES. PATIENT REMAINS OFF SEDATION AND RESPONSIVE TO TACTILE STIMULI AND CONTINUES TO BE UNRESPONSIVE TO VERBAL STIMULI.
--- NOTE | 2019-02-10 21:42 | NUR ---
Respiratory note: CALLED TO BEDSIDE BY RN DUE TO PT DESATURATING TO THE 70'S AND RR IN THE HIGH 30'S. ANG DRAWN, SWITCHED PT BACK TO PREVIOUS SETTINGS ON A/C MODE AND FIO2 INCREASED TO 100%, SATS UP TO 91%. BREATH SOUNDS COURSE, SUCTIONED FOR MOD AMT OF THICK TUCKER SECRETIONS. NO IMPROVEMENT IN SATS/RR. PTS HR IS INCREASED WELL, RESPIRATORY EFFORT APPEARS AGONAL, PT LESS RESPONSIVE. DR. VERAS CALLED WITH ABG RESULTS AND UPDATE ON PT, ORDERS RECEIVED.
[2019-02-10] MEDS: DexMEDEtomidine 400 MCG in D5W 5% 96 ML IV SCH (22:08)
[2019-02-10] MEDS ORDERED: SODIUM BICARBONATE 8.4% INJ 50ML SYRINGE ONE (22:10)
[2019-02-10] MEDS ORDERED: SODIUM BICARBONATE 8.4 % INJ 50ML VIAL IV ONE (22:15)
--- NOTE | 2019-02-10 22:15 | NUR ---
TACHYPNEA/TACHYCARDIA/AGONAL BREATHING PATIENT IS HAVING AGONAL BREATHING, TACHYPNEIC IN HIGH 30'S, TACHYCARDIC IN 120'S TO 130'S AND SATURATION IS IN LOW 80'S. CALLED RT TO BEDSIDE. ABG DONE . PLACED PATIENT ON AC MODE ON VENTILATOR. TALKED TO ON THE PHONE AND ORDERS RECEIVED.
[2019-02-10] MEDS: ATORVASTATIN 20 MG TAB PO SCH (22:34)
--- NOTE | 2019-02-10 22:45 | NUR ---
CONDITION IMPROVED PATIENT IS BREATHING NORMAL, SATURATION IMPROVED. PATIENT IS ON FENTANYL 25MCG/HR.
[2019-02-11] VITALS (97 sets, daily range): BP systolic 95–120; BP diastolic 55–83
[2019-02-11] MEDS: ACCU-CHEK COMFORT CURVE STRIP VI SCH ×4 (00:30→17:41)
[2019-02-11] MEDS: InsuLIN REG 1unit/0.01ml Soln (100units/ml) SC SCH ×4 (00:32→17:41)
[2019-02-11] MEDS: PIPERACILLIN-TAZOB 2.25GM 50 ML IV SCH ×3 (02:58→17:40)
--- NOTE | 2019-02-11 05:30 | NUR ---
Patient bathe/linen change Patient given complete bath. Skin integrity assessed for any changes. Linens changed. Patient repositioned for comfort.
[2019-02-11 05:54] LABS: Basophils # (auto) 0.1 uL; Eosinophils # (auto) 0 uL; Hematocrit 23.6 % (41.0-53.0); Hemoglobin 8.3 g/dL (13.5-17.5); Lymphocytes # (auto) 0.8 uL; Nucleated Red Blood Cells % 0.9 %; Red Blood Cells 2.71 10^6/uL (4.5-5.90)
[2019-02-11 05:55] LABS: Basophils % (auto) 0.7 % (0.0-2.0); Eosinophils % (auto) 0.1 % (0.0-7.0); Mean Corpuscular Hemoglobin 30.6 pg (28.0-32.0); Mean Corpuscular Volume 87.4 fL (80.0-100.0); Monocytes # (auto) 0.7 uL; Monocytes % (auto) 8.8 % (0.0-12.0); Neutrophils # (auto) 6.8 uL; Neutrophils % (auto) 80.4 % (37.0-80.0); Platelet Count (auto) 207 10^3/uL (140-450); Red Cell Distribution Width 15.1 % (11.8-14.3); White Blood Cell 8.4 10^3/uL (4.4-10.8)
[2019-02-11 06:10] LABS: Calcium 7.4 mg/dL (8.5-10.1); Potassium 3.8 mmol/L (3.5-5.1)
[2019-02-11 06:13] LABS: BUN/Creatinine Ratio 15.2
--- NOTE | 2019-02-11 07:15 | NUR ---
Report received from REA Cao.
--- NOTE | 2019-02-11 08:50 | NUR ---
Irrigated flores and bladder scanner done to check for urine retention: no urine retention, max urine in bladder 58ml.
--- NOTE | 2019-02-11 09:00 | NUR ---
Patient had large loose, brown bowel movement. Alize-care given and chucks changed.
--- NOTE | 2019-02-11 09:10 | NUR ---
Dr. Martinez at bedside: Zachery patel started. Consult with family regarding code status or plans. Will schedule conference with Dr. Curiel and family.
[2019-02-11] MEDS ORDERED: FUROSEMIDE INJECTION 250 MG in SODIUM CHL 0.9% 225 ML IV SCH (09:15)
[2019-02-11] MEDS: PANTOPRAZOLE 40 MG/10 ML VIAL INJ IV SCH (10:33)
[2019-02-11] MEDS: FUROSEMIDE INJECTION 250 MG in SODIUM CHL 0.9% 225 ML IV SCH (10:33)
[2019-02-11] MEDS: SODIUM CHLOR 0.9% PF (SALINE LOCK) 10ML VIAL/SYR IV SCH ×2 (10:34→22:01)
[2019-02-11] MEDS: LINEZOLID 600MG/300ML 300 ML IV SCH (10:34)
[2019-02-11] MEDS: ASPirin-EC 81 mg tab PO SCH (10:34)
--- NOTE | 2019-02-11 10:42 | NUR ---
Respiratory note: CPAP ORDERED. PT TAKEN OFF OF SEDATION AT 1035. WILL DO CPAP ONCE PT WAKES UP.
--- NOTE | 2019-02-11 12:00 | NUR ---
Patient back on AC mode- went apneic per RT.
--- NOTE | 2019-02-11 12:16 | NUR ---
Respiratory note: PUT PT ON CPAP AT 1145. PT KEPT GOING APNIC, INCREASED WORK OF BREATHING AND TACHYPNIC.
--- NOTE | 2019-02-11 12:51 | NUR ---
Meeting scheduled at 1000am with family: Spoke with Gunner, patients son to schedule meeting for 1000am tomorrow.
--- NOTE | 2019-02-11 12:57 | NUR ---
Dr. Curiel at bedside: Zyvox discontinued -okay to schedule meeting with son at 1000 am tomorrow, page Dr. Curiel when family arrives.
[2019-02-11] MEDS: MIDAZOLAM DRIP 50 mg/50mL 50 ML IV SCH (13:19)
--- NOTE | 2019-02-11 15:35 | NUR ---
Dr. Ochoa at bedside: Aware of failed CPAP due to apnea.
--- NOTE | 2019-02-11 16:47 | NUR ---
Patient had 3bowel movements today: Patient on antibiotics. Bowels have no odor, inserted rectal tube for skin integrity protection.
--- NOTE | 2019-02-11 19:08 | NUR ---
ENDORSED CARE TO JOPHY.
[2019-02-11] MEDS: ATORVASTATIN 20 MG TAB PO SCH (22:01)
[2019-02-11] MEDS: DexMEDEtomidine 400 MCG in D5W 5% 96 ML IV SCH (22:08)
[2019-02-12] VITALS (86 sets, daily range): BP systolic 96–126; BP diastolic 14–90
[2019-02-12] MEDS: PIPERACILLIN-TAZOB 2.25GM 50 ML IV SCH ×4 (00:12→17:31)
[2019-02-12] MEDS: ACCU-CHEK COMFORT CURVE STRIP VI SCH ×5 (00:18→23:36)
--- NOTE | 2019-02-12 05:35 | NUR ---
Patient bathe/linen change Patient given complete bath. Skin integrity assessed for any changes. Linens changed. Patient repositioned for comfort.
[2019-02-12] MEDS: InsuLIN REG 1unit/0.01ml Soln (100units/ml) SC SCH ×5 (06:00→23:36)
[2019-02-12 06:15] LABS: Basophils # (auto) 0.1 uL; Eosinophils # (auto) 0.2 uL; Eosinophils % (auto) 2.7 % (0.0-7.0); Hematocrit 22.1 % (41.0-53.0); Hemoglobin 7.6 g/dL (13.5-17.5); Mean Corpuscular Hgb Conc. 34.2 g/dL (32.0-36.0); Mean Corpuscular Volume 87.9 fL (80.0-100.0); Monocytes # (auto) 0.7 uL; Monocytes % (auto) 8.4 % (0.0-12.0); Neutrophils # (auto) 6.7 uL; Neutrophils % (auto) 76.9 % (37.0-80.0); Nucleated Red Blood Cells % 0.4 %; Platelet Count (auto) 164 10^3/uL (140-450); Red Blood Cells 2.52 10^6/uL (4.5-5.90); Red Cell Distribution Width 15.1 % (11.8-14.3); White Blood Cell 8.7 10^3/uL (4.4-10.8)
[2019-02-12 06:34] LABS: Calcium 7.5 mg/dL (8.5-10.1); Potassium 3.1 mmol/L (3.5-5.1)
[2019-02-12 06:36] LABS: BUN/Creatinine Ratio 17.3
--- NOTE | 2019-02-12 07:35 | NUR ---
Report received from REA Cao.
[2019-02-12] MEDS: PANTOPRAZOLE 40 MG/10 ML VIAL INJ IV SCH (10:22)
[2019-02-12] MEDS: ASPirin-EC 81 mg tab PO SCH (10:23)
[2019-02-12] MEDS: SODIUM CHLOR 0.9% PF (SALINE LOCK) 10ML VIAL/SYR IV SCH ×2 (10:23→21:51)
--- NOTE | 2019-02-12 10:30 | NUR ---
Meeting with family today: Both Physicians with family (Dr. Curiel and Dr. Martinez) Discussed goals for the patient- The family decided to make patient a DNR, comfort care-terminal wean after gathering all family members. Brother is coming from [place] and family will decide on Saturday.
[2019-02-12 11:47] LABS: Hepatitis B Core IgM Negative; Hepatitis B Surface Antigen Negative (Negative)
--- NOTE | 2019-02-12 12:17 | NUR ---
Family wants private time with patient. Private time allowed and curtain closed for prayers.
[2019-02-12] MEDS: fentaNYL Drip 2500mCg/250mlNS 250 ML IV SCH (13:37)
[2019-02-12] MEDS: MIDAZOLAM DRIP 50 mg/50mL 50 ML IV SCH (13:37)
--- NOTE | 2019-02-12 14:56 | NUR ---
Residuals checked- 120ml aspirated. Turned off tube feeding. Will recheck in an hour.
--- NOTE | 2019-02-12 15:10 | NUR ---
Nutrition Follow-up Notes Wt.: 57.8 kg Pt's intubated, non-sedated, no immediate family member at bedside during rounds earlier. Pt's currently NPO, EN support temporarily held due to residuals, per nursing. Pt's with previous order for Nephro Carb Steady @ 30 ml/hr providing 1296 kcal, 58 gms pro and 523 ml free water. Est. Needs based on BW (56 kg): 6073-8957 kcal (25-30 kcal/kgBW), 56-61 gms pro (1.0-1.1 gms/kgBW). Will continue to monitor pertinent labs and reassess nutrient need prn Labs: BUN 100 H, CREAT 5.79 H, CA 7.5 L Skin: Domingo scale 9, high risk, pt's right hip/buttocks blanchable redness per senior marketing engineer. Pls refer to latest post splitter's notes for further details re: tx plans. GI: Pt had 100 ml BM this morning per senior marketing engineer. PES: Increased nutrient needs r/t current/chronic medical/nutritional status aeb 96% IBW, BMI 21.6 kg/m2, decreased muscle mass, intubated sedated with order of NPO Altered nutrition related lab values r/t current/chronic medical condition aeb elev RFT hypocalcemia Will continue to monitor NPO status, skin status, pertinent labs and weight trend. F/u in 2 to 3 days. Rec.: 1.) If still NPO remains on EN support, with renal labs continue trending up, not on dialysis, consider change EN formula to Glucerna 1.2 Luis Angel @ 50 ml/hr if medically appropriate. 2.) If Albumin continues trending down improved renal labs, consider Prostat 1 pkt BID. 3.) Consider daily MVI with minerals and Asc acid 500 mgs BID. 4.) Advance gradually to oral diet when medically appropriate. 5.) Refer pt to CDE/RD for further nutrition education and weight monitoring upon discharge. 6.) Continue current plan of care.
[2019-02-12] MEDS: FUROSEMIDE INJECTION 250 MG in SODIUM CHL 0.9% 225 ML IV SCH (16:18)
--- NOTE | 2019-02-12 18:56 | NUR ---
REPORT GIVEN AND ENDORSED CARE TO MICHAEL.
--- NOTE | 2019-02-12 18:57 | NUR ---
RT NOTE RECEIVED PT INTUBATED AND ON VENT V14 ON STATED SETTINGS. VENT IS PLUGGED TO RED OUTLET. ALARMS ARE ON AND AUDIBLE TO NURSING. AMBU BAG AT BEDSIDE AND CONNECTED TO O2 SOURCE. 8.0 ETT IS SECURED WITH ANCHORFAST AT 22 CM TO THE ORAL CENTER. BS ARE CLEAR. PT WAS SUCTIONED FOR SMALL RETURN FROM ETT AND MODERATE RETURN ORALLY. CO2 MONITOR IN PLACE. etCO2 24, POX 100% Addendum: 02/12/19 at 1930 by Lesvia Burgos RT Amended: Links added.
--- NOTE | 2019-02-12 19:45 | NUR ---
OPENING NOTE: INTUBATED AND SEDATED. OPENS EYES AND TRACKS. APPEARS UNCOMFORTABLE, NOTED WITH FACIAL GRIMACING WITH STIMULATION. NSR-SINUS TACH, HR 90-100s. SBP 90-110s. 8.0 ETT, 22 AT LIP. LS CTA, DIMINISHED TO BASES. EVEN AND UNLABORED BREATHING. MINIMAL ORAL SECRETIONS. SpO2>95% ON CURRENT VENT SETTINGS. ABD FLAT AND SOFT. HYPOACTIVE BS. +LIQUID STOOL VIA FLEXI-SEAL. OGT + AIR BOLUS, ~ 50 ML GASTRIC RESIDUALS. TF HELD, BUT WILL CONSIDER RESTARTING IN NEXT COUPLE OF HOURS, IF RESIDUALS REMAIN LOW. PIMENTEL PATENT AND INTACT, DRAINING PALE YELLOW URINE. SEE SKIN AND WOUND FLOWSHEET FOR ASSESSMENT. LEFT UPPER ARM PICC, CDI, PATENT WITH BLOOD RETURN BUT SLUGGISH. REINFORCED POC. MAINTAINED PATIENT SAFETY: BED LOCKED AND IN THE LOWEST POSITION, BED ALARM ON. FREQUENT VISUAL CHECKS. NO FAMILY PRESENT AT THIS TIME. WILL CONT CARE.
--- NOTE | 2019-02-12 19:59 | NUR ---
RT NOTE ROUTINE VENT CHECK DONE. PT INTUBATED AND ON VENT V14 ON STATED SETTINGS. VENT IS PLUGGED TO RED OUTLET. ALARMS ARE ON AND AUDIBLE TO NURSING. AMBU BAG AT BEDSIDE AND CONNECTED TO O2 SOURCE. 8.0 ETT IS SECURED WITH ANCHORFAST AT 22 CM TO THE ORAL CENTER. CO2 MONITOR IN PLACE. etCO2 33, POX 99% Addendum: 02/12/19 at 2040 by Lesvia Burgos RT Amended: Links added.
--- NOTE | 2019-02-12 20:49 | NUR ---
GASTRIC RESIDUALS < 30 ML - RESTARTED NEPRO TF AT 30 ML/HR
--- NOTE | 2019-02-12 20:54 | NUR ---
TYLENOL PRN GIVEN - APPEARS UNCOMFORTABLE
[2019-02-12] MEDS: ACETAMINOPHEN 500 MG TAB PO PRN (20:55)
--- NOTE | 2019-02-12 21:00 | NUR ---
SEDATION VACATION: BLOOD BANK ASSISTANT INCREASED SEDATION DUE TO PATIENT APPEARING UNCOMFORTABLE WITH GRIMACING NOTED. PATIENT OPENS EYES SPONTANEOUSLY AND TRACKS. WILL CONTINUE TO ASSESS SEDATION Addendum: 02/12/19 at 2211 by Quiana Scott RN RN Amended: Links added.
[2019-02-12] MEDS: ATORVASTATIN 20 MG TAB PO SCH (21:34)
--- NOTE | 2019-02-12 21:50 | NUR ---
APPEARS MORE COMFORTABLY THAN PREVIOUSLY, ABLE TO CLOSE HIS EYES, HR FROM 100s TO 90s - WILL CONT CARE
[2019-02-12] MEDS: POTASSIUM CHL 20MEQ/100ML 100 ML IV SCH ×2 (22:07→23:10)
[2019-02-12] MEDS: DexMEDEtomidine 400 MCG in D5W 5% 96 ML IV SCH (22:08)
--- NOTE | 2019-02-12 22:30 | NUR ---
RT NOTE ROUTINE VENT CHECK DONE. PT INTUBATED AND ON VENT V14 ON STATED SETTINGS. VENT IS PLUGGED TO RED OUTLET. ALARMS ARE ON AND AUDIBLE TO NURSING. AMBU BAG AT BEDSIDE AND CONNECTED TO O2 SOURCE. 8.0 ETT IS SECURED WITH ANCHORFAST AT 22 CM TO THE ORAL CENTER.PT SUCTIONED FOR SMALL RETURN. CO2 MONITOR IN PLACE. etCO2 35,POX 98% Addendum: 02/12/19 at 2334 by Lesvia Burgos RT Amended: Links added.
--- NOTE | 2019-02-12 23:38 | NUR ---
GASTRIC RESIDUAL > 60 ML - DECREASED TF TO 15 ML/HR AND HOB > 30 DEGREES
[2019-02-13] VITALS (96 sets, daily range): BP systolic 83–125; BP diastolic 50–77
[2019-02-13] MEDS: PIPERACILLIN-TAZOB 2.25GM 50 ML IV SCH ×5 (00:15→18:02)
--- NOTE | 2019-02-13 00:30 | NUR ---
RT NOTE ROUTINE VENT CHECK DONE. PT INTUBATED AND ON VENT V14 ON STATED SETTINGS. VENT IS PLUGGED TO RED OUTLET. ALARMS ARE ON AND AUDIBLE TO NURSING. AMBU BAG AT BEDSIDE AND CONNECTED TO O2 SOURCE. 8.0 ETT IS SECURED WITH ANCHORFAST AT 22 CM TO THE ORAL CENTER. CO2 MONITOR IN PLACE. etCO2 33,POX 99% Addendum: 02/13/19 at 0041 by Lesvia Burgos RT Amended: Links added.
--- NOTE | 2019-02-13 02:30 | NUR ---
GASTRIC RESIDUAL < 30 ML - WILL CONTINUE RATE AT 15 ML/HR DUE TO HIGH RISK FOR ASPIRATION
--- NOTE | 2019-02-13 02:31 | NUR ---
RT NOTE ROUTINE VENT CHECK DONE. PT INTUBATED AND ON VENT V14 ON STATED SETTINGS. VENT IS PLUGGED TO RED OUTLET. ALARMS ARE ON AND AUDIBLE TO NURSING. AMBU BAG AT BEDSIDE AND CONNECTED TO O2 SOURCE. 8.0 ETT IS SECURED WITH ANCHORFAST AT 22 CM TO THE ORAL CENTER. REA RODRIGUEZ AT BEDSIDE. CO2 MONITOR IN PLACE. etCO2 34,POX 99% Addendum: 02/13/19 at 0248 by Lesvia Burgos RT Amended: Links added.
--- NOTE | 2019-02-13 02:51 | NUR ---
BED BATH WITH CHG WIPES, ARTIE CARE, PIMENTEL CARE, ORAL CARE, AND FULL LINEN CHANGE COMPLETED
--- NOTE | 2019-02-13 03:13 | NUR ---
LEFT UPPER ARM PICC DRESSING AND INJECTION CAPS CHANGED VIA STERILE TECHNIQUE
[2019-02-13 03:46] LABS: Basophils # (auto) 0.1 uL; Basophils % (auto) 1.3 % (0.0-2.0); Eosinophils # (auto) 0.2 uL; Hemoglobin 7.2 g/dL (13.5-17.5); Lymphocytes # (auto) 0.9 uL; Monocytes # (auto) 0.6 uL; White Blood Cell 7.1 10^3/uL (4.4-10.8)
[2019-02-13 03:48] LABS: Lymphocytes % (auto) 12.2 % (10.0-50.0); Mean Corpuscular Hemoglobin 30.3 pg (28.0-32.0); Mean Corpuscular Hgb Conc. 34.2 g/dL (32.0-36.0); Mean Corpuscular Volume 88.7 fL (80.0-100.0); Monocytes % (auto) 7.8 % (0.0-12.0); Neutrophils # (auto) 5.4 uL; Neutrophils % (auto) 75.7 % (37.0-80.0); Nucleated Red Blood Cells % 0.8 %; Platelet Count (auto) 132 10^3/uL (140-450); Red Blood Cells 2.37 10^6/uL (4.5-5.90); Red Cell Distribution Width 14.8 % (11.8-14.3)
[2019-02-13 03:59] LABS: Calcium 7.5 mg/dL (8.5-10.1); Potassium 3.9 mmol/L (3.5-5.1)
[2019-02-13 04:04] LABS: Albumin 1.9 g/dL (3.4-5.0); BUN/Creatinine Ratio 17.8; Bilirubin, Total 0.5 mg/dL (0.2-1.0); Total Protein 5.4 g/dL (6.4-8.2)
--- NOTE | 2019-02-13 04:10 | NUR ---
RT NOTE ROUTINE VENT CHECK DONE. PT INTUBATED AND ON VENT V14 ON STATED SETTINGS. VENT IS PLUGGED TO RED OUTLET. ALARMS ARE ON AND AUDIBLE TO NURSING. AMBU BAG AT BEDSIDE AND CONNECTED TO O2 SOURCE. 8.0 ETT IS SECURED WITH ANCHORFAST AT 22 CM TO THE ORAL CENTER. HME AND INLINE SUCTION CHANGED WITHOUT INCIDENT. CO2 MONITOR IN PLACE. etCO2 32,POX 100% Addendum: 02/13/19 at 0442 by Lesvia Burgos RT Amended: Links added.
[2019-02-13] MEDS: fentaNYL Drip 2500mCg/250mlNS 250 ML IV SCH (05:32)
--- NOTE | 2019-02-13 05:50 | NUR ---
GASTRIC RESIDUALS < 50 ML - WILL KEEP TF AT CURRENT RATE
[2019-02-13] MEDS: InsuLIN REG 1unit/0.01ml Soln (100units/ml) SC SCH ×3 (06:00→18:00)
[2019-02-13] MEDS: ACCU-CHEK COMFORT CURVE STRIP VI SCH ×3 (06:01→18:02)
--- NOTE | 2019-02-13 06:01 | NUR ---
BG 71 - 120 ML ORANGE JUICE GIVEN
--- NOTE | 2019-02-13 06:49 | NUR ---
BG RECHECK 91
--- NOTE | 2019-02-13 06:49 | NUR ---
CLOSING NOTE: REMAINS INTUBATED AND SEDATED. LOW BP, WILL REDUCE SEDATION. VS OTHERWISE STABLE. WILL CONT CARE
--- NOTE | 2019-02-13 07:14 | NUR ---
ENDORSED CARE TO REA ADAM
--- NOTE | 2019-02-13 07:45 | NUR ---
HIGH RESIDUALS RESIDUALS GREATER THAN 100CC. TUBE FEEDINGS STOPPED AT THIS TIME
--- NOTE | 2019-02-13 08:15 | NUR ---
PATIENTS SON SIAT AT BEDSIDE ASKING IF HE CAN SPEAK DIRECTLY WITH PRIMARY MD. PAGED HOSPITALIST. DR QUIROZ WILL COME SPEAK WITH FAMILY AT 10 AM. PATIENTS SON AWARE
--- NOTE | 2019-02-13 08:57 | NUR ---
DR SCHILLING AT BEDSIDE DISCUSSED PATIENTS STATUS AND PLAN OF CARE WITH PATIENTS VIOLET BUCKNER AT BEDSIDE.
[2019-02-13] MEDS: FUROSEMIDE INJECTION 250 MG in SODIUM CHL 0.9% 225 ML IV SCH ×2 (10:00→20:30)
[2019-02-13] MEDS: SODIUM CHLOR 0.9% PF (SALINE LOCK) 10ML VIAL/SYR IV SCH ×2 (10:28→21:26)
[2019-02-13] MEDS: PANTOPRAZOLE 40 MG/10 ML VIAL INJ IV SCH (10:28)
[2019-02-13] MEDS: ASPirin-EC 81 mg tab PO SCH (10:28)
[2019-02-13] MEDS: MIDAZOLAM DRIP 50 mg/50mL 50 ML IV SCH (13:37)
--- NOTE | 2019-02-13 14:13 | NUR ---
DR QUIROZ AT BEDSIDE. NEW ORDERS PLACED
--- NOTE | 2019-02-13 15:15 | NUR ---
PATIENT TRANSPORTED TO RADIOLOGY DEPARTMENT FOR HEAD CT. CONNECTED TO PORTABLE LINE CLEANER AND PORTABLE VENTILATOR. PATIENTS VITALS STABLE DURING TRANSPORT.
--- NOTE | 2019-02-13 16:36 | NUR ---
ASSUMED CARE OF PATIENT. PATIENT IS INTUBATED AND LIGHTLY SEDATED. RESPIRATIONS EVEN AND UNLABORED. NO SIGNS OF ACUTE DISTRESS NOTED.
--- NOTE | 2019-02-13 17:48 | NUR ---
UMM SCHILLING ON PATIENT STATUS PER MD INCREASE LASIX DRIP TO 10MG/HR
--- NOTE | 2019-02-13 19:30 | NUR ---
OPENING NOTE: INTUBATED AND SEDATED. OPENS EYES AND TRACKS. APPEARS UNCOMFORTABLE, NOTED WITH FACIAL GRIMACING WITH STIMULATION. NSR-SINUS TACH WITH BBB, HR 90-100s. SBP 90-110s. 8.0 ETT, 22 AT LIP. LS CTA, DIMINISHED TO BASES. EVEN AND UNLABORED BREATHING. MINIMAL ORAL SECRETIONS. SpO2>95% ON CURRENT VENT SETTINGS. ABD FLAT AND SOFT. HYPOACTIVE BS. +LIQUID STOOL VIA FLEXI-SEAL. OGT + AIR BOLUS, ~ 200 ML GASTRIC RESIDUALS. TF HELD. PIMENTEL PATENT AND INTACT, DRAINING PALE YELLOW URINE. SEE SKIN AND WOUND FLOWSHEET FOR ASSESSMENT. LEFT UPPER ARM PICC, CDI, PATENT WITH BLOOD RETURN BUT SLUGGISH. REINFORCED POC. MAINTAINED PATIENT SAFETY: BED LOCKED AND IN THE LOWEST POSITION, BED ALARM ON. FREQUENT VISUAL CHECKS. NO FAMILY PRESENT AT THIS TIME. WILL CONT CARE.
--- NOTE | 2019-02-13 19:30 | NUR ---
GASTRIC RESIDUALS > 200 ML - PLACED OGT TO LIS - TF HELD
--- NOTE | 2019-02-13 19:30 | NUR ---
TEMP 100.5F AXILLARY - REMOVED BLANKETS, MADE AMBIENT AIR COOLER, PLACE COOL WASH CLOTH ON FOREHEAD
--- NOTE | 2019-02-13 20:30 | NUR ---
TEMP NOW 98.9F AXILLARY
--- NOTE | 2019-02-13 21:05 | NUR ---
SPOKE WITH NURIS, GRANDDAUGHTER, AFTER PASSWORD VERIFIED UPDATED ON PATIENT'S STATUS: ENCOURAGED TO HAVE FAMILY PRESENT DURING MEAL TIMES TO ASSIST WITH APPETITE. Addendum: 02/13/19 at 2106 by Quiana Scott RN RN MISTAKEN ENTRY
[2019-02-13] MEDS: D5W/SOD CHLO 0.9% 1,000 ML IV SCH (21:26)
[2019-02-13] MEDS: METOCLOPRAMIDE HCL 5MG/ml INJ 2ml VIAL IV SCH (21:26)
[2019-02-13] MEDS: ATORVASTATIN 20 MG TAB PO SCH (21:26)
[2019-02-13] MEDS: ACETAMINOPHEN 500 MG TAB PO PRN (21:59)
[2019-02-13] MEDS: DexMEDEtomidine 400 MCG in D5W 5% 96 ML IV SCH (22:08)
[2019-02-14] VITALS (103 sets, daily range): BP systolic 75–126; BP diastolic 25–81
--- NOTE | 2019-02-14 | NUR ---
FLEXI SEAL LEAKING - FULL LINEN CHANGE COMPLETED AND PARTIAL BED BATH COMPLETED
[2019-02-14] MEDS: PIPERACILLIN-TAZOB 2.25GM 50 ML IV SCH ×5 (00:06→23:48)
[2019-02-14] MEDS: ACCU-CHEK COMFORT CURVE STRIP VI SCH ×5 (00:06→23:49)
[2019-02-14] MEDS: FUROSEMIDE INJECTION 250 MG in SODIUM CHL 0.9% 225 ML IV SCH ×2 (00:30→23:50)
[2019-02-14 04:03] LABS: Basophils # (auto) 0.1 uL; Eosinophils # (auto) 0 uL; Hematocrit 20.9 % (41.0-53.0); Hemoglobin 7.1 g/dL (13.5-17.5); Monocytes # (auto) 0.7 uL; Neutrophils # (auto) 6.5 uL; Platelet Count (auto) 117 10^3/uL (140-450)
[2019-02-14 04:06] LABS: Eosinophils % (auto) 0.2 % (0.0-7.0); Lymphocytes # (auto) 1.1 uL; Lymphocytes % (auto) 13.4 % (10.0-50.0); Mean Corpuscular Hemoglobin 30.3 pg (28.0-32.0); Mean Corpuscular Hgb Conc. 33.9 g/dL (32.0-36.0); Mean Corpuscular Volume 89.4 fL (80.0-100.0); Monocytes % (auto) 8.3 % (0.0-12.0); Neutrophils % (auto) 77.1 % (37.0-80.0); Nucleated Red Blood Cells % 1.5 %; Red Blood Cells 2.34 10^6/uL (4.5-5.90); Red Cell Distribution Width 15.1 % (11.8-14.3); White Blood Cell 8.4 10^3/uL (4.4-10.8)
[2019-02-14 04:22] LABS: BUN/Creatinine Ratio 18.5; Calcium 7.6 mg/dL (8.5-10.1); Magnesium 2.8 mg/dL (1.6-2.6); Phosphorus 8.6 mg/dL (2.5-4.90); Potassium 4.1 mmol/L (3.5-5.1)
[2019-02-14] MEDS: METOCLOPRAMIDE HCL 5MG/ml INJ 2ml VIAL IV SCH ×3 (05:51→22:00)
[2019-02-14] MEDS: InsuLIN REG 1unit/0.01ml Soln (100units/ml) SC SCH ×5 (05:52→23:49)
[2019-02-14] MEDS: fentaNYL Drip 2500mCg/250mlNS 250 ML IV SCH (05:52)
[2019-02-14] MEDS: ACETAMINOPHEN 500 MG TAB PO PRN (05:54)
--- NOTE | 2019-02-14 06:37 | NUR ---
CLOSING NOTE: REMAINS INTUBATED AND SEDATED. VSS. WILL ENDORSE CARE TO DAY SHIFT
--- NOTE | 2019-02-14 07:07 | NUR ---
Respiratory note: RECEIVED PATIENT ON V14 ESPRIT VENT ORALLY INTUBATED WITH AN 8.0 ETT SECURED VIA JABARI AT THE 22CM MARKING AT THE LIP, AND MECHANICALLY VENTILATED WITH THE CHARTED SETTINGS. SPO2 96%, LUNG SOUNDS COARSE T/O, SMALL AMOUNT OF THICK LIGHT TUCKER SECRETIONS WHEN SUCTIONED. SKIN IS WARM/DRY TO THE TOUCH AND IS INTACT NEAR JABARI SITE. THERE IS AN OGT IN PLACE AND SECURED TO THE ETT, A PICC LINE IS PLACED IN THE LEFT UPPER ARM. EDEMA NOTED IN LEFT HAND. NO EDEMA NOTED IN OTHER EXTREMITIES. NO NEW CXR TO ASSESS. PATIENT UNRESPONSIVE TO VERBAL STIMULI BUT DOES SHOW SOME RESPONSE TO TACTILE STIMULI AND IS OFF ALL SEDATION. PATIENT IS RESTING COMFORTABLY AND TOLERATING VENT WELL, NO CHANGES MADE. VENT PLUGGED INTO RED OUTLET AND ALL ALARMS ARE SET AND AUDIBLE. WILL CONTINUE TO ASSESS PATIENT WELL VENTILATOR FUNCTION.
--- NOTE | 2019-02-14 07:30 | NUR ---
REPORT REPORT RECEIVED FROM NU RNMICHAEL. BEDSIDE CHECK DONE.
--- NOTE | 2019-02-14 07:35 | NUR ---
REPORT AND CARE ENDORSED TO REA DENG
--- NOTE | 2019-02-14 07:57 | NUR ---
ASSESSMENT PT RESTING IN BED WITH EYES OPEN. DOES NOT RESPOND TO VERBAL STIMULI BUT WITHDRAWS TO PAINFUL STIMULI. NO SPONTANEOUS MOVEMENT NOTED. SEDATED ON FENTANYL AT 75 MCG/HR WHILE INTUBATED. VENT SETTINGS OF: 8 FR ETT/22 AT THE LIP, TV 500, AC 14, 30% AND PEEP OF 8. LUNGS CLEAR THROUGHOUT AND SLIGHTLY DIMINISHED AT THE BASES, POSTERIOR. RR 14 WITH O2 SAT OF 96%. TELE ST 100 WITH BBB, AND DEPRESSED ST IN LEAD II AND ELEVATED ST IN LEAD V. PALPABLE PULSES TO ALL EXTREMITIES. NO EDEMA NOTED. NO SCDS PT VERY CONTRACTED TO BLE AND ALSO TO RUE. ABD SOFT WITH HYPOACTIVE BOWEL SOUNDS. OGT WITH PLACEMENT VERIFIED AND APPROX 5 ML BILE RESIDUAL. HAD BEEN CLAMPED AFTER MEDS GIVEN AND RETURNED TO LIS. PT WITH FLEXISEAL IN PLACE AND DRAINING WATERY LIQUID GREENISH/BROWN FLUID. RILEY CATHETER DRAINING CLEAR PALE YELLOW URINE. PT REPOSITIONED TO HIS RIGHT SIDE. NOTED TO HAVE A VERY SMALL SKIN TEAR TO THE LEFT HIP, OPEN TO AIR AND Z GUARD IN PLACE. SACRAL OPTIFOAM IN LACE WITH MILD BLANCHABLE PINK SKIN NOTED. BILATERAL ISCHIUM BLANCHABLE RED. HEELS OFF LOADED ON PILLOWS. ON HILL ROM ON DEMAND BED FOR SKIN PROTECTION. RAILS UP X4 AND BED IN LOW POSITION FOR PT SAFETY.
--- NOTE | 2019-02-14 08:50 | NUR ---
MD/PHONE DR VERAS CALLED IN TO CHECK ON PT. UPDATED ON PT'S CURRENT CONDITION. NO NEW ORDERS RECEIVED.
[2019-02-14] MEDS: PANTOPRAZOLE 40 MG/10 ML VIAL INJ IV SCH (09:55)
[2019-02-14] MEDS: MICAFUNGIN SODIUM 100 MG in SODIUM CHL 0.9% 100 ML IV SCH (09:55)
[2019-02-14] MEDS: ASPirin-EC 81 mg tab PO SCH (09:56)
[2019-02-14] MEDS: SODIUM CHLOR 0.9% PF (SALINE LOCK) 10ML VIAL/SYR IV SCH ×2 (09:56→22:00)
--- NOTE | 2019-02-14 12:09 | NUR ---
Nutrition Follow-up Notes Wt.: 61.3 kg Pt's intubated, non-sedated, no immediate family member at bedside during rounds earlier. Pt's currently NPO, EN support temporarily held due to high residuals, per nursing. Pt's with previous order for Nephro Carb Steady @ 30 ml/hr providing 1296 kcal, 58 gms pro and 523 ml free water. Est. Needs based on BW (56 kg): 0231-7592 kcal (25-30 kcal/kgBW), 56-61 gms pro (1.0-1.1 gms/kgBW). Will continue to monitor pertinent labs and reassess nutrient need prn Labs: BUN 132 H, CREAT 7.12 H, GLU 134 H, CA 7.6 L. Skin: Domingo scale 11, high risk, pt's right hip/buttocks blanchable redness per cad drafter. Pls refer to latest resawyer's notes for further details re: tx plans. GI: Pt had 300 ml BM this morning per cad drafter. PES: Increased nutrient needs r/t current/chronic medical/nutritional status aeb 96% IBW, BMI 21.6 kg/m2, decreased muscle mass, intubated sedated with order of NPO Altered nutrition related lab values r/t current/chronic medical condition aeb elev RFT hypocalcemia Will continue to monitor NPO status, skin status, pertinent labs and weight trend. F/u in 2 to 3 days. Rec.: 1.) If still NPO remains on EN support, with renal labs continue trending up, not on dialysis, consider change EN formula to Glucerna 1.2 Luis Angel @ 50 ml/hr if medically appropriate. 2.) If Albumin continues trending down improved renal labs, consider Prostat 1 pkt BID. 3.) Consider daily MVI with minerals and Asc acid 500 mgs BID. 4.) Advance gradually to oral diet when medically appropriate. 5.) Refer pt to CDE/RD for further nutrition education and weight monitoring upon discharge. 6.) Continue current plan of care.
[2019-02-14] MEDS: MIDAZOLAM DRIP 50 mg/50mL 50 ML IV SCH ×2 (13:37→22:30)
[2019-02-14] MEDS ORDERED: NOREPINEPHRINE 8 MG/250ML KIT 250 ML IV ONE (13:37)
--- NOTE | 2019-02-14 17:29 | NUR ---
PT'S SON , EDILSON GRACIA, , INFORMED ME THAT THE FAMILY WOULD LIKE TO HAVE THE PT TRANSFERRED TO [facility]. BRETT RAMIREZ NP, WHO IS HEAD BUYER TOBACCO CURRENTLY.
--- NOTE | 2019-02-14 19:00 | NUR ---
FAMILY REQUESTING TRANSFER TO [facility]. CONTACTED [facility] TO INQUIRE ABOUT TRANSFER. SHE STATED THAT DUE TO HIGH NEED FOR ICU BEDS AND MULTIPLE ICU HOLDS IN THEIR ER, THAT THEY ARE ONLY ACCEPTING PTS IN NEED OF HIGHER LEVEL OF CARE. PT'S SON, EDILSON , NOTIFIED. Addendum: 02/14/19 at 1915 by Trice Carr RN PT'S SON REQUESTING THAT WE FOLLOW UP WITH [facility] TOMORROW.
--- NOTE | 2019-02-14 19:30 | NUR ---
Respiratory note: PT CHANGED TO HEATED WIRE CIRCUIT AND PLACED ON VENT V2, UNEVENTFUL. VENT SST'D AND PASSED. ALARMS ON AND AUDIBLE, VENT PLUGGED INTO RED OUTLET.
--- NOTE | 2019-02-14 19:30 | NUR ---
REPORT REPORT GIVEN TO MICHAEL JUDGE RN.
--- NOTE | 2019-02-14 20:15 | NUR ---
TEMP 100.5F ORALLY - REMOVED BLANKETS
--- NOTE | 2019-02-14 20:15 | NUR ---
OPENING NOTE: INTUBATED AND SEDATED. OPENS EYES AND TRACKS. APPEARS UNCOMFORTABLE, NOTED WITH FACIAL GRIMACING WITH STIMULATION. NSR-SINUS TACH WITH BBB, HR 90-100s. SBP 90-110s. ON LEVOPHED GTT. 8.0 ETT, 22 AT LIP. LS CTA, DIMINISHED TO BASES. EVEN AND UNLABORED BREATHING. MINIMAL ORAL SECRETIONS. SpO2>95% ON CURRENT VENT SETTINGS. ABD FLAT AND SOFT. HYPOACTIVE BS. +LIQUID STOOL VIA FLEXI-SEAL. OGT + AIR BOLUS, ~ 30 ML GASTRIC RESIDUALS. TF HELD. PIMENTEL PATENT AND INTACT, DRAINING PALE YELLOW URINE. SEE SKIN AND WOUND FLOWSHEET FOR ASSESSMENT. LEFT UPPER ARM PICC, CDI, PATENT WITH BLOOD RETURN BUT SLUGGISH. REINFORCED POC. MAINTAINED PATIENT SAFETY: BED LOCKED AND IN THE LOWEST POSITION, BED ALARM ON. FREQUENT VISUAL CHECKS. NO FAMILY PRESENT AT THIS TIME. WILL CONT CARE.
[2019-02-14] MEDS: ATORVASTATIN 20 MG TAB PO SCH (22:00)
--- NOTE | 2019-02-14 22:00 | NUR ---
BLADDER SCAN 0 ML
[2019-02-14] MEDS: DexMEDEtomidine 400 MCG in D5W 5% 96 ML IV SCH (22:08)
--- NOTE | 2019-02-14 22:10 | NUR ---
NOTED WITH COFFEE GROUND/LIGHT PINK OUTPUT VIA OGT - CLAMPED
--- NOTE | 2019-02-14 22:15 | NUR ---
TEMP NOW 98.7F
--- NOTE | 2019-02-14 22:16 | NUR ---
RR IN HIGH 20s- LABORED BREATHING- MAX'D ON FENTANYL GTT
[2019-02-14] MEDS: D5W/SOD CHLO 0.9% 1,000 ML IV SCH (22:30)
--- NOTE | 2019-02-14 22:30 | NUR ---
RR REMAINS ELEVATED - DESATURATING - STARTED ON VERSED GTT
--- NOTE | 2019-02-14 22:49 | NUR ---
BP IN 70s - NEARING MAX OF LEVOPHED DRIP - PAGED CELL BIOLOGY SCIENTIST HOSPITALIST
[2019-02-14] MEDS: NOREPINEPHRINE 8 MG/250ML KIT 250 ML IV SCH (22:50)
[2019-02-14] MEDS: PHENYLEPHRINE INJ 20 MG in SODIUM CHL 0.9% 250 ML IV SCH (22:52)
--- NOTE | 2019-02-14 22:53 | NUR ---
SPOKE WITH DR. CALDWELL: ADVISED OF PATIENT'S STATUS AND VS. ORDERS FOR KIMANI GTT. INQUIRED ABOUT ALBUMIN INFUSION D/T POOR NUTRITIONAL STATUS AND POOR UOP. PER DR. CALDWELL, WILL ENDORSE WITH PRIMARY PHYSICIAN
[2019-02-15] VITALS (64 sets, daily range): BP systolic 71–118; BP diastolic 39–68
--- NOTE | 2019-02-15 00:53 | NUR ---
DECREASED MAINTENANCE IVF TO 5 ML/HR DUE TO INCREASE TOTAL IV FLUID FROM CURRENT DRIPS
--- NOTE | 2019-02-15 01:04 | NUR ---
OGT PLACED TO LIS - BILIOUS, NO COFFEE GROUND NOTED
--- NOTE | 2019-02-15 02:33 | NUR ---
BED BATH WITH CHG, ARTIE CARE, PIMENTEL CARE, ORAL CARE, HAIR CARE, AND FULL LINEN CHANGE COMPLETED
[2019-02-15] MEDS: fentaNYL Drip 2500mCg/250mlNS 250 ML IV SCH (02:48)
[2019-02-15] MEDS: NOREPINEPHRINE 8 MG/250ML KIT 250 ML IV SCH (04:16)
[2019-02-15] MEDS: InsuLIN REG 1unit/0.01ml Soln (100units/ml) SC SCH (05:44)
[2019-02-15] MEDS: ACCU-CHEK COMFORT CURVE STRIP VI SCH (05:44)
[2019-02-15] MEDS: PIPERACILLIN-TAZOB 2.25GM 50 ML IV SCH (05:44)
[2019-02-15] MEDS: METOCLOPRAMIDE HCL 5MG/ml INJ 2ml VIAL IV SCH (05:44)
--- NOTE | 2019-02-15 06:30 | NUR ---
CLOSING NOTE: BREATHING EASIER. REMAINS ON LEVOPHED GTT. WILL CONT CARE
[2019-02-15 06:46] LABS: Albumin 1.9 g/dL (3.4-5.0); Calcium 7.5 mg/dL (8.5-10.1); Potassium 4.5 mmol/L (3.5-5.1)
[2019-02-15 06:48] LABS: Basophils # (auto) 0.1 uL; Eosinophils # (auto) 0 uL; Hematocrit 18.3 % (41.0-53.0); Monocytes # (auto) 1.4 uL; White Blood Cell 14.7 10^3/uL (4.4-10.8)
[2019-02-15 06:50] LABS: Basophils % (auto) 0.5 % (0.0-2.0); Lymphocytes # (auto) 1.4 uL; Lymphocytes % (auto) 9.4 % (10.0-50.0); Mean Corpuscular Hemoglobin 30.2 pg (28.0-32.0); Mean Corpuscular Hgb Conc. 33.7 g/dL (32.0-36.0); Mean Corpuscular Volume 89.6 fL (80.0-100.0); Monocytes % (auto) 9.4 % (0.0-12.0); Neutrophils # (auto) 11.8 uL; Neutrophils % (auto) 80.7 % (37.0-80.0); Nucleated Red Blood Cells % 4.5 %; Platelet Count (auto) 87 10^3/uL (140-450); Red Blood Cells 2.05 10^6/uL (4.5-5.90); Red Cell Distribution Width 15.3 % (11.8-14.3)
[2019-02-15] MEDS: MIDAZOLAM DRIP 50 mg/50mL 50 ML IV SCH (06:50)
[2019-02-15 06:55] LABS: Bilirubin, Total 0.9 mg/dL (0.2-1.0); Total Protein 5.2 g/dL (6.4-8.2)
[2019-02-15 07:00] LABS: Hemoglobin 6.2 g/dL (13.5-17.5)
--- NOTE | 2019-02-15 07:00 | NUR ---
HGB CRITICAL 6.2
[2019-02-15] MEDS: PHENYLEPHRINE INJ 20 MG in SODIUM CHL 0.9% 250 ML IV SCH (07:12)
--- NOTE | 2019-02-15 07:16 | NUR ---
WILL REORDER CBC AND HAVE TECHNICAL MARKETING CONSULTANT DRAW - ENDORSED TO DAY SHIFT RN
--- NOTE | 2019-02-15 07:17 | NUR ---
REPORT AND CARE ENDORSED TO REA ADAM
[2019-02-15 07:43] LABS: BUN/Creatinine Ratio 18.1
[2019-02-15 08:05] LABS: Basophils # (auto) 0.1 uL; Basophils % (auto) 0.6 % (0.0-2.0); Eosinophils # (auto) 0 uL; Eosinophils % (auto) 0.1 % (0.0-7.0); Lymphocytes # (auto) 1.6 uL; Mean Corpuscular Hemoglobin 30.1 pg (28.0-32.0)
[2019-02-15 08:07] LABS: Hematocrit 19.9 % (41.0-53.0); Lymphocytes % (auto) 10.3 % (10.0-50.0); Mean Corpuscular Volume 91.3 fL (80.0-100.0); Monocytes # (auto) 1.5 uL; Monocytes % (auto) 9.7 % (0.0-12.0); Neutrophils # (auto) 12.4 uL; Neutrophils % (auto) 79.3 % (37.0-80.0); Nucleated Red Blood Cells % 3.7 %; Platelet Count (auto) 84 10^3/uL (140-450); Red Blood Cells 2.18 10^6/uL (4.5-5.90); Red Cell Distribution Width 15.5 % (11.8-14.3); White Blood Cell 15.6 10^3/uL (4.4-10.8)
--- NOTE | 2019-02-15 08:07 | NUR ---
DR Carlos GRACE AT BEDSIDE REPEATED HGB 6.6, RECEIVED NEW ORDERS.
[2019-02-15 08:17] LABS: Hemoglobin 6.6 g/dL (13.5-17.5)
[2019-02-15] MEDS ORDERED: ALBUMIN 5% 250 ML IV ONE (08:30)
[2019-02-15] MEDS: PANTOPRAZOLE 40 MG/10 ML VIAL INJ IV SCH (09:38)
[2019-02-15] MEDS: SODIUM CHLOR 0.9% PF (SALINE LOCK) 10ML VIAL/SYR IV SCH (10:00)
[2019-02-15] MEDS: MICAFUNGIN SODIUM 100 MG in SODIUM CHL 0.9% 100 ML IV SCH (10:00)
[2019-02-15] MEDS: ASPirin-EC 81 mg tab PO SCH (10:00)
--- NOTE | 2019-02-15 10:26 | NUR ---
BLOOD CONSENT OBTAINED OVER THE PHONE FROM SON, EDILSON. SECOND RN WITNESSED CONSENT
--- NOTE | 2019-02-15 11:02 | NUR ---
DR COOPER AT BEDSIDE NEW ORDERS PLACED PENDING PATIENTS FAMILY DECISION ON TREATMENT PLAN. AWAITING FAMILY ARRIVAL
[2019-02-15] MEDS ORDERED: DOPamine 1600MCG/ML D5W 250 ML IV SCH (11:45)
[2019-02-15] MEDS ORDERED: BUMETANIDE INJECTION 12.5 MG in GIVE UN-DILUTED 0 ML IV SCH (11:45)
--- NOTE | 2019-02-15 12:20 | NUR ---
FAMILY REQUESTED MEETING WITH NURSING STAFF PRIMARY RN AND ANOTHER ACCOUNT MANAGER TRAINEE WHO IS ESTONIAN SPEAKING. PATIENTS AND PATIENTS CHILDREN (SONS AND DAUGHTER WITH SPOUSES) ALL DISCUSSED PATIENTS STATUS AND CARE. RNS EXPLAINED TO FAMILY MD RECOMMENDATIONS IN DETAIL. FAMILY AGREED THAT THEY WISH NOT TO PROCEED WITH DIALYSIS, AND MAKE PATIENT DNR WITH PLAN TO TERMINAL WEAN PATIENT TODAY. DR VERAS AWARE AND CODE STATUS PAPER SIGNED
--- NOTE | 2019-02-15 13:02 | NUR ---
DR VERAS AT BEDSIDE NEW ORDERS RECEIVED
[2019-02-15] MEDS ORDERED: LORazepam 2MG/ML-1ML VIAL ONE (13:04)
[2019-02-15] MEDS ORDERED: MORPHINE SULF INJ 2 MG/ML SYRINGE 1ML ONE (13:05)
[2019-02-15] MEDS ORDERED: LORazepam 2MG/ML-1ML VIAL IV PRN (13:15)
[2019-02-15] MEDS ORDERED: MORPHINE SULF INJ 2 MG/ML SYRINGE 1ML IV PRN (13:15)
--- NOTE | 2019-02-15 13:27 | NUR ---
SPOKE WITH DR GRACE REGARDING FAMILY'S DECISION FOR TERMINAL WEAN ORDER SIGNED BY DR VERAS
--- NOTE | 2019-02-15 16:26 | NUR ---
COMPASSION EXTUBATION PER FAMILYS REQUEST. ALL IV INFUSIONS STOPPED. MEDICATIONS ADMINISTERED FOR COMFORT. ALL FAMILY AT BEDSIDE
--- NOTE | 2019-02-15 17:25 | NUR ---
ALAINA RAMIREZ LIME KILN WORKER AT BEDSIDE, PRONOUNCED, TIME OF 0996
--- NOTE | 2019-02-15 17:35 | NUR ---
REFRIGERATOR MOVER'S OFFICE NOTIFIED OF , AWAITING RETURN CALL FROM REFRIGERATOR MOVER
--- NOTE | 2019-02-15 17:38 | NUR ---
[employer] NOTIFIED- NOT A CANDIDATE FOR DONATION REFERENCE NUMBER # [id number]
--- NOTE | 2019-02-15 18:50 | NUR ---
RDA RETURNED CALL PRADEEP CERRATO. PATIENT RELEASED- [phone]
--- NOTE | 2019-02-15 21:50 | NUR ---
AFFORDABLE CREMATIONS HERE TO PROMOTION SPECIALIST PT'S BODY. POST MORTEM CARE DONE. WILL NOTIFY FAMILY.
--- NOTE | 2019-02-15 21:53 | NUR ---
NO ANSWER FROM SLITTER CUT OFF OPERATOREDILSON. MESSAGE LEFT
== END 2019-02-15 21:54 | disposition expired | DRG 720 ==
LOC: ER 09:06 → TELE 09:07 → ICU WEST 02-06 19:12
PROVIDERS: ADMIT Nurse Practitioner Acute Care; ATTEND Internal Medicine
PROC: 5A1955Z Respiratory Ventilation, Greater than 96 Consecutive Hours (ICD-10-PCS; principal; 2019-02-06)
PROC: 0BH17EZ Insertion of Endotracheal Airway into Trachea, Via Natural or Artificial Opening (ICD-10-PCS; 2019-02-06)
PROC: 02HV33Z Insertion of Infusion Device into Superior Vena Cava, Percutaneous Approach (ICD-10-PCS; 2019-02-06)
PROC: 0W9B3ZZ Drainage of Left Pleural Cavity, Percutaneous Approach (ICD-10-PCS; 2019-02-07)
PROC: 30233N1 Transfusion of Nonautologous Red Blood Cells into Peripheral Vein, Percutaneous Approach (ICD-10-PCS; 2019-02-15)
DX: A41.9 Sepsis, unspecified organism (principal); I21.4 Non-ST elevation (NSTEMI) myocardial infarction; J96.01 Acute respiratory failure with hypoxia; J69.0 Pneumonitis due to inhalation of food and vomit; N17.0 Acute kidney failure with tubular necrosis; R65.21 Severe sepsis with septic shock; E11.21 Type 2 diabetes mellitus with diabetic nephropathy; G81.91 Hemiplegia, unspecified affecting right dominant side; N04.9 Nephrotic syndrome with unspecified morphologic changes; I48.91 Unspecified atrial fibrillation; E44.0 Moderate protein-calorie malnutrition; Z99.11 Dependence on respirator [ventilator] status; N18.4 Chronic kidney disease, stage 4 (severe); I13.0 Hypertensive heart and chronic kidney disease with heart failure and stage 1 through stage 4 chronic kidney disease, or unspecified chronic kidney disease; I50.43 Acute on chronic combined systolic (congestive) and diastolic (congestive) heart failure; E86.0 Dehydration; E83.41 Hypermagnesemia; E87.1 Hypo-osmolality and hyponatremia; D63.1 Anemia in chronic kidney disease; E83.39 Other disorders of phosphorus metabolism; I16.9 Hypertensive crisis, unspecified; Z51.5 Encounter for palliative care; E87.6 Hypokalemia; E11.22 Type 2 diabetes mellitus with diabetic chronic kidney disease; J98.11 Atelectasis; I16.1 Hypertensive emergency; Z74.01 Bed confinement status; I69.320 Aphasia following cerebral infarction; Z79.84 Long term (current) use of oral hypoglycemic drugs; Z91.19 Patient's noncompliance with other medical treatment and regimen; Z99.2 Dependence on renal dialysis; Z68.23 Body mass index [BMI] 23.0-23.9, adult
CPT/HCPCS: 32555; 36415; 36600; 70450; 71045; 71250; 76604; 76775; 76942; 80048; 80053; 80061; 81001; 82570; 82784; 82805; 82962; 83036; 83605; 83735; 83880; 83883; 83930; 83935; 84100; 84156; 84300; 84443; 84484; 85025; 85610; 85730; 86141; 86334; 86335; 86703; 86705; 86803; 86850; 86900; 86901; 86920; 87040; 87070; 87077; 87081; 87205; 87340; 92610; 93005; 93306; 93971; 94002; 94003; 94640; 94761; 96365; 96372; 96375; C9113; G0378; J0330; J0696; J1815; J2001; J2248; J2250; J2405; J2543; J3480; J7042; J7060